=== PATIENT | male | born 1975 | race Caucasian/White ===

== ENCOUNTER 2020-03-04 08:48 | Outpatient (CLI) | payer OTHER, SELFPAY ==
[2020-03-04 09:58] LABS: Vitamin D 25 Hydroxy 55.9 ng/mL
== END 2020-03-04 08:49 | disposition home or self-care (01) ==
PROVIDERS: PCP Family Medicine; Visit Provider Nurse Practitioner Family
DX: E55.9 Vitamin D deficiency, unspecified (principal)
CPT/HCPCS: 36415; 82306

== ENCOUNTER 2020-07-25 08:55 | Outpatient (CLI) | payer OTHER, SELFPAY ==
[2020-07-25 09:35] LABS: Cholesterol 143 mg/dL (0-200); HDL Direct 23 mg/dL; Triglycerides 196 mg/dL (<150)
[2020-07-25 09:45] LABS: LDL Cholesterol Direct 103 mg/dL
== END 2020-07-25 08:56 | disposition home or self-care (01) ==
PROVIDERS: PCP Family Medicine; Visit Provider Nurse Practitioner Family
DX: E78.1 Pure hyperglyceridemia (principal); E78.2 Mixed hyperlipidemia
CPT/HCPCS: 36415; 80061

== ENCOUNTER 2020-08-29 18:04 | Emergency (ER) | payer OTHER, SELFPAY ==
--- NOTE | ~2020-08-29 | CT_ITS ---
EXAMINATION: CT abdomen pelvis wo con DATE: 08/29/2020 19:04 INDICATION: Right lower quadrant abdominal pain TECHNIQUE: Computed tomography (CT) of the abdomen and pelvis was performed without intravenous contr ast. The dose-length product (DLP) was 1169.47 mGy-cm. Automated exposure control and iterative recon struction technique were employed. COMPARISON: 06/03/2017 FINDINGS: Minimal dependent atelectasis is present in the lung bases. The heart size is normal. The l iver, spleen, pancreas, gallbladder, and adrenal glands are normal. The left kidney is unremarkable. There is a 6 mm stone at the right ureteropelvic junction which causes mild hydronephrosis. Adjacent nonobstructing stones of the right kidney lower pole measure 6 mm and 4 mm. No pathologically enlarge d abdominal or pelvic lymph nodes are identified. There is no free intraperitoneal gas or evidence of bowel obstruction. The appendix is normal. There are umbilical and bilateral inguinal hernias contai david fat. There are bilateral L5 pars defects with grade 1 anterolisthesis of L5 on S1. IMPRESSION: 1. 6 mm stone of the right ureteropelvic junction causing mild hydronephrosis. 2. Nonobstructing right nephrolithiasis. Reviewed, dictated and finalized at location A. 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
--- NOTE | ~2020-08-29 | XR_ITS ---
EXAMINATION: XR abdomen/kub 1V INDICATION: Right-sided abdominal pain TECHNIQUE: Supine views of the abdomen were obtained on 2 radiographs. COMPARISON: None FINDINGS: A 6 mm stone projects at the expected location of the right ureteropelvic junction at the l evel of the right L2 transverse process. Adjacent stones of the right kidney lower pole measure 6 mm and 4 mm. The bowel gas pattern is normal. IMPRESSION: 1. 6 mm stone projecting at the expected location of the right ureteropelvic junction. 2. Right nephrolithiasis. Reviewed, dictated and finalized at location A. ESS AREA SUPERVISOR IMPRESSION: 1. 6 mm stone projecting at the expected location of the right ureteropelvic ju nction. 2. Right nephrolithiasis.
[2020-08-29 18:23] VITALS: BP 150/95; PULSE 82; RESP 17; TEMP 36.4; O2SAT 99
--- NOTE | 2020-08-29 18:24 | ED.GENADULT ---
HPI - General Adult General Chief complaint: Abdominal Pain Stated complaint: R ABD PAIN X3D Time Seen by Provider: 08/29/20 18:20 Source: RN notes reviewed History of Present Illness HPI narrative: Patient presents to emergency department from home for right lower quadrant abdominal pain. Patient states pain began 3 days ago progressively worsened pain is described as sharp and stabbing does not radiate denies any fevers or chills chest pain shortness of breath nausea vomiting diarrhea or any other symptoms states he took a hydrocodone this morning for his pain with no relief denies any other symptoms at this time Related Data Home Medications Medication Instructions Recorded Confirmed cyclobenzaprine mg 08/29/20 fenofibrate nanocrystallized mg PO 08/29/20 08/29/20 gabapentin 08/29/20 hydrocodone-acetaminophen 08/29/20 naproxen 08/29/20 simvastatin mg 08/29/20 sumatriptan succinate mg PO 08/29/20 topiramate 08/29/20 Allergies Allergy/AdvReac Type Severity Reaction Status Date / Time penicillamine Allergy Severe Unknown Verified 08/29/20 18:19 Penicillins Allergy Severe Anaphylactic Verified 08/29/20 18:19 Shock COCONUT Allergy Mild Rash Uncoded 10/21/17 17:06 Review of Systems Review of Systems: Narrative: Gen.: Denies fevers or chills ENT: Denies congestion Respiratory: Denies shortness of breath or cough CV: Denies chest pain or palpitations GI: See HPI denies burning, urgency, frequency or hematuria Musculoskeletal: Denies back pain or muscle pain Neuro: Denies numbness, tingling, weakness or focal weakness Skin: Denies rash Except as documented, all other systems reviewed and negative [facility] Past Medical History Medical History (Updated 08/29/20 @ 19:45 by Drew Vargas DO) Hypercholesterolemia Family History Family History (Updated 04/20/16 @ 23:21 by DOCTOR UNKNOWN) Father Patient's father is in good health Mother No family history of diabetes mellitus Social History Social History Second hand tobacco smoke exposure: Yes Smoking end date: 09/23/10 Alcohol intake: current Gender identity (if verbalized by the patient): Male Exam Narrative: Exam Narrative: APPEARANCE: No acute distress, nontoxic, resting in bed HEENT: Normocephalic, atraumatic, OMM RESPIRATORY: No respiratory distress, clear to auscultation bilaterally with no rhonchi wheezing or rales CARDIOVASCULAR: RRR s murmur ABDOMINAL: Soft, nondistended, tender palpation right lower quadrant no tenderness right upper quadrant left upper quadrant left lower quadrant no rebound or guarding MUSCULOSKELETAl: Moves all extremities. No clubbing, cyanosis or edema. NEURO: Awake and alert. Following commands, speech normal, no focal deficits SKIN:: Warm, dry. Normal Color PSYCHIATRIC: Normal affect/mood Course Course Emergency Course: Discussed with Dr. Huff presentation and work-up this time feels patient may be discharged to follow-up as an outpatient as long as pain is controlled Long discussion with the patient and family regarding his kidney stone we discussed his current pain levels and his current hydrocodone use at home. Discussed options of admission with stent placement versus going home and attempting to pass the stone on his own this time the patient would prefer to try to go home and pass the stone on his own discussed need for follow-up with urology and need to refrain from ibuprofen use patient states he has enough hydrocodone's at home for use for his pain control Vital Signs Vital signs: Vital Signs Temperature 97.5 F L 08/29/20 18:23 Pulse Rate 82 08/29/20 18:23 Respiratory Rate 17 08/29/20 18:23 Blood Pressure 150/95 H 08/29/20 18:23 Pulse Oximetry 99 08/29/20 18:23 Temperature 97.5 F L 08/29/20 18:23 Pulse Rate 82 08/29/20 18:23 Respiratory Rate 17 08/29/20 18:23 Blood Pressure 150/95 H 08/29/20 18:23
[2020-08-29 18:40] LABS: Basophils Absolute Auto 0.1 K/mm3 (0.0-0.1); Basophils Percent Auto 1.1 % (0.2-1.2); Eosinophils Absolute Auto 0.4 K/mm3 (0-0.3); Eosinophils Percent Auto 4.7 % (0-4.4); Hematocrit 41.7 % (42.0-52.0); Hemoglobin 14.5 g/dL (14.0-18.0); Immature Granulocyte Absolute 0.03 K/mm3 (0.00-0.031); Immature Granulocyte Percent A 0.4 % (0-0.5); Lymphocytes Absolute Auto 2.76 K/mm3 (0.9-3.2); Lymphocytes Percent Auto 33.1 % (18.3-44.2); Mean Corpuscular HGB Conc 34.8 g/dl (32-36); Mean Corpuscular Volume 86.3 fl (80-100); Mean Platelet Volume 10.1 fl (7.4-10.4); Monocytes Absolute Auto 0.4 K/mm3 (0.1-0.6); Monocytes Percent Auto 5.1 % (2.6-8.5); Neutrophils Absolute Auto 4.7 K/mm3 (1.3-6.7); Neutrophils Percent Auto 55.6 % (45.5-73.1); Platelet Count Result 277 k/mm3 (150-375); Red Blood Count 4.83 M/mm3 (4.6-6.20); Red Cell Distribution Width 12.7 % (11.5-14.5); White Blood Count 8.4 K/mm3 (4.5-10.0)
[2020-08-29 18:46] LABS: Add Urine Microscopic? YES; Appearance Urine Cloudy (Clear); Bilirubin Urine Negative (Negative); Blood Urine 3+ (Negative); Color Urine Yellow (Yellow); Glucose Urine UA Negative (Negative); Ketones Urine Negative (Negative); Leukocyte Esterase Ur Negative LEU/UL (Negative); Mucus Urine Heavy /lpf; Nitrate Urine Negative (Negative); Protein Urine 2+ mg/dL (Negative); RBC Urine >75 /hpf (0-2); Specific Grav Ur 1.021 (1.001-1.035); Squamous Epithelial Cell Urine Rare /hpf (Few)
[2020-08-29 18:51] LABS: Alanine Aminotransferase 31 U/L (4-50); Albumin Level 4.5 g/dL (3.5-5.1); Alkaline Phosphatase 38 U/L (38-126); Anion Gap 9 mmol/L (8-16); Aspartate Amino Transferase 31 U/L (17-59); Bilirubin,Total 0.5 mg/dL (0.2-1.3); Blood Urea Nitrogen 23 mg/dL (9-20); Carbon Dioxide 21 mmol/L (22-30); Chloride 110 mmol/L (98-107); Estimated CRCL calculation 54 ml/min; Estimated Glomerular Filt Rate 41; Glucose 134 mg/dL (75-110); Lipase 186 U/L (23-300); Potassium 3.4 mmol/L (3.4-5.0); Sodium 140 mmol/L (137-145)
[2020-08-29] MEDS: MORPHINE SULFATE (*CRX) 4 MG/ML INJ IV PUSH (19:00)
[2020-08-29] MEDS: SODIUM CHLORIDE 0.9% IV 1,000 ML 999 ML IV CONT (19:00)
[2020-08-29] MEDS: TAMSULOSIN HCL 0.4 MG CAPSULE PO (19:25)
[2020-08-29] MEDS: MORPHINE SULFATE (*CRX) 2 MG/ML INJ IV PUSH (20:16)
== END 2020-08-29 20:18 | disposition home or self-care (01) ==
PROVIDERS: Emergency Medicine; Emergency Provider Emergency Medicine; PCP Family Medicine
DX: N13.2 Hydronephrosis with renal and ureteral calculous obstruction (principal); N28.9 Disorder of kidney and ureter, unspecified; E78.00 Pure hypercholesterolemia, unspecified
CPT/HCPCS: 36415; 74018; 74176; 80053; 81001; 83690; 85025; 87086; 96374; 96376; 99284; A9270; J2270; J7030

== ENCOUNTER 2020-09-09 09:01 | Inpatient (IN) | payer OTHER, SELFPAY ==
[2020-09-09] VITALS (31 sets, daily range): BP systolic 107–146; BP diastolic 62–100; PULSE 63–93; RESP 14–26; TEMP 36.4–38; O2SAT 94–100
--- NOTE | ~2020-09-09 | CT_ITS ---
EXAMINATION: CT abdomen pelvis wo con DATE: 09/09/2020 11:27 INDICATION: Urinary tract infection, cold chills. Diarrhea for 2 days. Urinary urgency. History of ki dney stones. TECHNIQUE: Computed tomography (CT) of the abdomen and pelvis was performed without intravenous contr ast. Automated exposure control and iterative reconstruction technique were employed. Exam dose: 431 .31 mGy-cm total exam DLP. COMPARISON: 08/29/2020 CT abdomen pelvis noncontrast examination FINDINGS: There is atelectasis in both lower lobes, right greater than left. The liver, gallbladder, spleen, pancreas, bile ducts, pancreatic duct and adrenal glands are unremark able. Approximately 3 mm and 6 cm lower pole nonobstructing right renal calculi. There is an approximately 4 mm proximal right ureteral calculus at the L3-4 level with mild right hyd roureteronephrosis and mild probable pyelosinus extravasation. Approximately 1.6 cm probable upper pole posterior right renal cyst. No left urinary tract calculus or hydroureteronephrosis. The urinary bladder and prostate gland are u nremarkable. Normal caliber of the abdominal aorta. No intraperitoneal or retroperitoneal or pelvic mass lesion or adenopathy or ascites. No evidence of appendicitis. No bowel obstruction, bowel wall thickening, pneumatosis or intraperiton eal free air. Small fat-containing hernias, larger on the right. Mild retrolisthesis at L4-5. Bilateral L5 pars interarticularis defects, with associated grade 1 anterolisthesis at L5-S1. Moderat masoud severe degenerative disc disease at L5-S1. IMPRESSION: 4 mm proximal right ureteral calculus at L3-4 level with mild right hydroureteronephrosi s and pyelosinus extravasation 3 mm and 6 mm lower pole nonobstructing right renal calculi Probable 1.6 cm right renal cyst Bilateral L5 pars interarticularis defects with associated grade 1 anterolisthesis at L5-S1, as well as moderately severe degenerative disc disease Reviewed, dictated and finalized at [facility]. Reviewed, dictated and finalized at location [facility]. 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
--- NOTE | ~2020-09-09 | XR_ITS ---
EXAMINATION: XR retrograde pyelo w/stent RT DATE: 09/09/2020 13:55 INDICATION: Right internal ureteral stent placement TECHNIQUE: Fluoroscopic images from a right internal ureteral stent placement are submitted for tiff payan 31 seconds of fluoroscopy time. 4 Fluoroscopic images. FINDINGS: There is a right double-J internal ureteral stent projecting in expected position, with proximal [place] loop at the level of the renal pelvis and distal loop in the pelvis within the bladder lumen. IMPRESSION: 1. Right internal ureteral stent placement. Please refer to real-time procedural findings for anna mccarty. Reviewed, dictated and finalized at location A. 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 Right internal ureteral stent placement. Please refer to real-time procedu ral findings for details.
--- NOTE | ~2020-09-09 | XR_ITS ---
EXAMINATION: XR abdomen/kub 1V EXAM DATE: 09/12/2020 13:37 INDICATION: surgical planning . TECHNIQUE: Frontal projection of the upper abdomen, frontal projection lower abdomen/pelvis for inter pretation. Comparison is made to prior examination from 08/29/2020. FINDINGS: There is a right-sided double-J ureteral stent overlying expected position. Can't identify previously seen right calyceal, UPJ stones. Nonobstructive bowel gas pattern. No organomegaly. IMPRESSION: 1. Right double-J ureteral stent in position. Reviewed, dictated and finalized at location B. NE RETAILER
--- NOTE | ~2020-09-09 | XR_ITS ---
XR chest 1V portable DATE: 09/09/2020 10:01 INDICATION: Fever. Weakness. TECHNIQUE: Portable AP chest on 09/09/2020 at 1003 hours COMPARISON: None FINDINGS: Heart size is within normal range. There is mild discoid atelectasis, discoid scarring and/or mild infiltrate in the right lower lung zo ne. No pulmonary consolidation, pleural effusion or pneumothorax is detected. No hilar or mediastinal enlargement. IMPRESSION: Mild discoid atelectasis, discoid scarring and/or mild infiltrate in the right lower lung Reviewed, dictated and finalized at location B. 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
--- NOTE | 2020-09-09 09:14 | ED.GENADULT ---
HPI - General Adult General Chief complaint: Unspecified Stated complaint: hot/cold flashes, weak Time Seen by Provider: 09/09/20 09:14 Source: patient and family Mode of arrival: ambulatory Limitations: no limitations History of Present Illness HPI narrative: Patient is a 45-year-old male with a history of nephrolithiasis, recent ureteral stenting at [facility] on 12/30, stent removal 09/05, who presents for evaluation of subjective fever, chills, general malaise and weakness. Patient states he has malaise, myalgias and feels generally unwell. He denies chest pain, cough or shortness of breath. He denies headache or vision changes. He denies any loss of sense of taste or smell. He does report mild rhinorrhea. Patient states he feels diffusely weak and has extreme lack of energy. He has states he has been sweating. He denies any new rashes. No sick contacts at home. He denies dysuria or hematuria. Related Data Home Medications Medication Instructions Recorded Confirmed cyclobenzaprine mg 08/29/20 fenofibrate nanocrystallized mg PO 08/29/20 08/29/20 gabapentin 08/29/20 hydrocodone-acetaminophen 08/29/20 naproxen 08/29/20 simvastatin mg 08/29/20 sumatriptan succinate mg PO 08/29/20 topiramate 08/29/20 Allergies Allergy/AdvReac Type Severity Reaction Status Date / Time penicillamine Allergy Severe Unknown Verified 09/09/20 09:22 Penicillins Allergy Severe Anaphylactic Verified 09/09/20 09:22 Shock COCONUT Allergy Mild Rash Uncoded 09/09/20 09:22 Review of Systems Review of Systems: Narrative: CONSTITUTIONAL: Reports fever, chills, malaise EYES: Denies visual changes, redness, or discharge. ENT: Mild rhinorrhea without congestion or sore throat CARDIOVASCULAR: Denies chest pain, palpitations, or edema. RESPIRATORY: Denies cough or dyspnea. GASTROINTESTINAL: Denies abdominal pain, nausea, vomiting, or diarrhea. GENITOURINARY: Denies dysuria or hematuria. SKIN: Denies rash or itching. MUSCULOSKELETAL: Denies back pain, reports diffuse joint pain and myalgias NEUROLOGIC: Denies headache, numbness, reports feeling diffusely weak PMFSH Past Medical History Medical History (Updated 09/09/20 @ 12:24 by Gemma Landis MD) Hypercholesterolemia Lumbar strain Migraine Nephrolithiasis Tear of meniscus of left knee Surgical History Surgical History (Updated 09/09/20 @ 09:42 by Gemma Landis MD) S/P ureteral stent placement Family History Family History (Updated 04/20/16 @ 23:21 by DOCTOR UNKNOWN) Father Patient's father is in good health Mother No family history of diabetes mellitus Social History Social History Second hand tobacco smoke exposure: Yes Smoking end date: 09/23/10 Alcohol intake: current Gender identity (if verbalized by the patient): Male Exam Narrative: Exam Narrative: GENERAL: Awake, alert, conversant, mildly diaphoretic HEAD: Normocephalic, atraumatic. EYES: PERRLA and EOMI. ENT: Nares clear, no rhinorrhea or epistaxis. Mucous membranes moist. NECK: Supple. CHEST: No respiratory distress, breathing even and non labored HEART: Regular rate, sinus rhythm ABDOMEN:Non distended, non tender EXTREMITIES: Normal range of motion. No edema. SKIN: Pale, warm, dry, no rash. NEURO:No focal deficits. Alert and oriented x3 Course Vital Signs Vital signs: Vital Signs Temperature 36.4 C 09/09/20 09:05 Pulse Rate 92 09/09/20 09:05 Respiratory Rate 18 09/09/20 09:05 Blood Pressure 139/100 H 09/09/20 09:05 Pulse Oximetry 99 09/09/20 09:05 Temperature 36.4 C 09/09/20 09:05 Pulse Rate 72 09/09/20 11:49 Respiratory Rate 20 09/09/20 11:49 Blood Pressure 115/80 09/09/20 11:49 Pulse Oximetry 99 09/09/20 11:49 Medical Decision Making MDM Narrative Medical decision making narrative: Patient presented for evaluation of generalized malaise, arthralgias, no speci
--- NOTE | 2020-09-09 09:28 | ECG_ITS ---
Measurements Intervals [place] Rate: 82 P: 17 AR: 235 QRS: 20 QRSD: 166 T: 15 QT: 397 QTc: 466 Interpretive Statements SINUS RHYTHM WITH FIRST DEGREE AV BLOCK RIGHT BUNDLE BRANCH BLOCK ABNORMAL ECG Electronically Signed On 09-09-2020 9:41:28 POWERHOUSE HELPER by Jesus Hester D.O.
[2020-09-09 09:40] LABS: Glucose Point of Care 123 (65-105)
[2020-09-09] MEDS: ONDANSETRON INJ 4 MG/2 ML VIAL IV PUSH (09:56)
[2020-09-09] MEDS: SODIUM CHLORIDE 0.9% IV 1,000 ML 999 ML IV CONT ×2 (09:56→11:18)
[2020-09-09 10:04] LABS: Basophils Absolute Auto 0.1 K/mm3 (0.0-0.1); Basophils Percent Auto 0.6 % (0.2-1.2); Eosinophils Absolute Auto 0.5 K/mm3 (0-0.3); Hematocrit 42.1 % (42.0-52.0); Hemoglobin 14.1 g/dL (14.0-18.0); Immature Granulocyte Absolute 0.09 K/mm3 (0.00-0.031); Immature Granulocyte Percent A 0.6 % (0-0.5); Lymphocytes Absolute Auto 1.21 K/mm3 (0.9-3.2); Mean Corpuscular HGB Conc 33.5 g/dl (32-36); Mean Corpuscular Hemoglobin 29.4 pg (26-34); Mean Corpuscular Volume 87.9 fl (80-100); Mean Platelet Volume 10.4 fl (7.4-10.4); Monocytes Percent Auto 6.8 % (2.6-8.5); Neutrophils Absolute Auto 12.3 K/mm3 (1.3-6.7); Platelet Count Result 287 k/mm3 (150-375); Red Blood Count 4.79 M/mm3 (4.6-6.20); Red Cell Distribution Width 12.6 % (11.5-14.5); White Blood Count 15.1 K/mm3 (4.5-10.0)
[2020-09-09 10:11] LABS: Add Urine Microscopic? YES; Appearance Urine Cloudy (Clear); Bacteria Urine Trace /hpf; Bilirubin Urine Negative (Negative); Blood Urine 2+ (Negative); Color Urine Yellow (Yellow); Glucose Urine UA Negative (Negative); Ketones Urine Negative (Negative); Leukocyte Esterase Ur 3+ LEU/UL (Negative); Mucus Urine Rare /lpf; Nitrate Urine Negative (Negative); Protein Urine 2+ mg/dL (Negative); RBC Urine >75 /hpf (0-2); Specific Grav Ur 1.021 (1.001-1.035); Squamous Epithelial Cell Urine Rare /hpf (Few); WBC Urine >75 /hpf
[2020-09-09 10:13] LABS: INR 1.1
[2020-09-09 10:14] LABS: Partial Thromboplastin Time 40.1 SECONDS (22.3-36.8)
[2020-09-09 10:18] LABS: Lactic Acid Reflex 0.9 mmol/L (0.7-2.1)
[2020-09-09 10:27] LABS: Alanine Aminotransferase 33 U/L (4-50); Albumin Level 4.2 g/dL (3.5-5.1); Alkaline Phosphatase 47 U/L (38-126); Anion Gap 11 mmol/L (8-16); Aspartate Amino Transferase 36 U/L (17-59); Bilirubin,Total 1.1 mg/dL (0.2-1.3); Blood Urea Nitrogen 20 mg/dL (9-20); Calcium 9.2 mg/dL (8.4-10.2); Carbon Dioxide 22 mmol/L (22-30); Chloride 104 mmol/L (98-107); Estimated CRCL calculation 71 ml/min; Estimated Glomerular Filt Rate 51; Glucose 121 mg/dL (75-110); Potassium 3.6 mmol/L (3.4-5.0); Sodium 137 mmol/L (137-145)
[2020-09-09 10:30] LABS: Troponin I < 0.012 ng/mL (0.000-0.034)
[2020-09-09 10:48] LABS: CRP 20.4 mg/dL (<1.0)
[2020-09-09] MEDS: CIPROFLOXACIN 400 MG/D5W 200ML 200 ML 200 MG IVPB (11:17)
--- NOTE | 2020-09-09 11:32 | PC.NURSE ---
pt back from radiology at this time.
--- NOTE | 2020-09-09 12:13 | WPDURCON ---
Assessment and Plan Assessment and plan (1) Ureteral calculus, right: Code(s): N20.1 - Calculus of ureter Status: Acute Assessment and Plan: He will undergo cystoscopy with right stent placement today. He has an elevated white count and elevated creatinine. He understands will not be removing his stone. He will be admitted to the medicine service afterwards for IV antibiotics and monitoring. He will need definitive stone management at some point once the acute situation resolved (2) Calculus, kidney: Code(s): N20.0 - Calculus of kidney Status: Acute Assessment and Plan: Two nonobstructing kidney stones in the right noted on CT scan (3) Abnormal urinalysis: Code(s): R82.90 - Unspecified abnormal findings in urine Status: Acute Assessment and Plan: Suspicious for infection. Urine culture pending Urology Consult Note HPI Date Seen: 09/09/20 Primary Care Provider: Joe Ireland MD Consult Narrative Narrative: Rommel Morales is a 45 year old male who was seen in the emergency room here on August 29 with a right proximal ureteral stone. He was discharged with pain medicine. He has stone surgery down at [facility]. They did ureteroscopy and evidently stone extraction. He was sent home with a stent. He was told to take his stent out himself on Saturday which she did. He did well for a couple days. However on Saturday states he started feeling lot of malaise and body aches. He endorsed a fever but had no thermometer at home. He stated he had some blood in his urine and some mild flank pain. He presented to the emergency room here today. His urine is grossly abnormal. He has a 4 mm mid to proximal ureteral stone with some probable extravasation. He has an abnormal chest x-ray and there is at least a suspicion for COVID-19. In light of his fever, white count, ureteral stone he will undergo right ureteral stent today. Review of Systems Review of Systems: Narrative: He denies any cough for upper respiratory symptoms. All systems reviewed & are unremarkable except as noted in HPI and below PMFSH Past Medical History Medical History (Updated 09/09/20 @ 12:16 by Keaton Mayo MD) Hypercholesterolemia Lumbar strain Migraine Nephrolithiasis Tear of meniscus of left knee Surgical History Surgical History (Updated 09/09/20 @ 09:42 by Gemma Landis MD) S/P ureteral stent placement Family History Family History (Updated 04/20/16 @ 23:21 by DOCTOR UNKNOWN) Father Patient's father is in good health Mother No family history of diabetes mellitus Social History Social History Second hand tobacco smoke exposure: Yes Smoking end date: 09/23/10 Alcohol intake: current Gender identity (if verbalized by the patient): Male Meds Home Medications and Allergies Home Medications Medication Instructions Recorded Confirmed Type cyclobenzaprine mg 08/29/20 History fenofibrate nanocrystallized mg PO 08/29/20 08/29/20 History gabapentin 08/29/20 History hydrocodone-acetaminophen 08/29/20 History naproxen 08/29/20 History ondansetron 4 mg PO Q6H PRN #10 tablet 08/29/20 Rx simvastatin mg 08/29/20 History sumatriptan succinate mg PO 08/29/20 History tamsulosin [Flomax] 0.4 mg PO DAILY #5 cap 08/29/20 Rx topiramate 08/29/20 History Allergies Allergy/AdvReac Type Severity Reaction Status Date / Time penicillamine Allergy Severe Unknown Verified 09/09/20 09:22 Penicillins Allergy Severe Anaphylactic Verified 09/09/20 09:22 Shock COCONUT Allergy Mild Rash Uncoded 09/09/20 09:22 Vital Signs Vital Signs - 24 hr 09/09/20 09:05 09/09/20 09:41 09/09/20 09:45 Temperature 97.6 F Pulse Rate 89 82 85 Respiratory Rate 18 20 16 Blood Pressure 139/100 H Pulse Oximetry 99 100 100 09/09/20 09:56 09/09/20 10:15 09/09/20 10:30 Temperature Pulse Rate 73 80
--- NOTE | 2020-09-09 13:22 | WPDANESEPPF ---
Anes - Initial Pre Proc Eval Procedure: Operation Date: 09/09/20 13:45 Proposed Procedures p CYSTOSCOPY,RIGHT STENT PLACEMENT - Tom Chaudhry MD Date/Time: 09/09/20 13:22 Surgeon: Tom Chaudhry MD Pre Op Diagnosis: hot/cold flashes, weak Patient Data Age: 45 Gender: M Height: 1.96 m Weight: 114 kg Last Vital Signs Temp 36.4 C 09/09/20 09:05 Pulse 76 09/09/20 13:01 Resp 24 H 09/09/20 13:01 BP 117/78 09/09/20 13:01 Pulse Ox 100 09/09/20 13:01 Allergies Allergy/AdvReac Type Severity Reaction Status Date / Time penicillamine Allergy Severe Unknown Verified 09/09/20 09:22 Penicillins Allergy Severe Anaphylactic Verified 09/09/20 09:22 Shock COCONUT Allergy Mild Rash Uncoded 09/09/20 09:22 Home Medications Medication Instructions Recorded Confirmed Type cyclobenzaprine mg 08/29/20 History fenofibrate nanocrystallized mg PO 08/29/20 08/29/20 History gabapentin 08/29/20 History hydrocodone-acetaminophen 08/29/20 History naproxen 08/29/20 History ondansetron 4 mg PO Q6H PRN #10 tablet 08/29/20 Rx simvastatin mg 08/29/20 History sumatriptan succinate mg PO 08/29/20 History tamsulosin [Flomax] 0.4 mg PO DAILY #5 cap 08/29/20 Rx topiramate 08/29/20 History Laboratory Tests 09/09/20 09/09/20 09/09/20 09:37 09:41 09:44 WBC 15.1 K/mm3 H K/mm3 (4.5-10.0) RBC 4.79 M/mm3 M/mm3 (4.6-6.20) Hgb 14.1 g/dL g/dL (14.0-18.0) Hct 42.1 % % (42.0-52.0) MCV 87.9 fl fl (80-100) MCH 29.4 pg pg (26-34) MCHC 33.5 g/dl g/dl (32-36) RDW 12.6 % % (11.5-14.5) Plt Count 287 k/mm3 k/mm3 (150-375) MPV 10.4 fl fl (7.4-10.4) Immature Gran % (Auto) 0.6 % H % (0-0.5) Neut % (Auto) 81.0 % H % (45.5-73.1) Lymph % (Auto) 8.0 % L % (18.3-44.2) [place] % (Auto) 6.8 % % (2.6-8.5) Eos % (Auto) 3.0 % % (0-4.4) Baso % (Auto) 0.6 % % (0.2-1.2) Lymph # (Auto) 1.21 K/mm3 K/mm3 (0.9-3.2) [place] # (Auto) 1.0 K/mm3 H K/mm3 (0.1-0.6) Eos # (Auto) 0.5 K/mm3 H K/mm3 (0-0.3) Baso # (Auto) 0.1 K/mm3 K/mm3 (0.0-0.1) Abs Immat Gran (auto) 0.09 K/mm3 H K/mm3 (0.00-0.031) Absolute Neuts (auto) 12.3 K/mm3 H K/mm3 (1.3-6.7) Absolute Nucleated RBC 0.0 K/mm3 K/mm3 (0.0-0.012) Nucleated RBC % 0.0 % % (0.0-0.2) PT INR APTT Sodium Potassium Chloride Carbon Dioxide Anion Gap BUN Creatinine Estim Creat Clear Calc Estimated GFR Glucose POC Capillary Glucose 123 mg/dl H mg/dl (65-105) Lactic Acid Calcium Total Bilirubin AST ALT Alkaline Phosphatase Troponin I C-Reactive Protein Total Protein Albumin Urine Color Urine Appearance Urine pH Ur Specific [place] Urine Protein Urine Glucose (UA) Urine Ketones Ur Blood (Man) Urine Nitrate Urine Bilirubin Urine Urobilinogen Leukocyte Esterase Rfl Urine RBC Urine WBC Ur Squamous Epith Cells Urine Bacteria Hyaline Casts Urine Mucus SARS-CoV-2 RNA (RT-PCR) Pending 09/09/20 09/09/20 09/09/20 09:44 09:44 09:44 WBC RBC Hgb Hct MCV MCH MCHC RDW Plt Count MPV Immature Gran % (Auto) Neut % (Auto) Lymph % (Auto) [place] % (Auto)
[2020-09-09] MEDS: LACTATED RINGERS 1,000 ML 30 ML IV CONT (13:30)
--- NOTE | 2020-09-09 13:31 | WPDHPUPDATE1 ---
History and Physical Update Update Date/Time: 09/09/20 13:31 History and Physical has been reviewed, including an updated exam of the patient. There are NO changes in the patient's condition. Risks, benefits, and alternatives have been discussed and questions answered. Patient agrees to proceed with procedure.
[2020-09-09] MEDS: LIDOCAINE HCL 2% GEL UROJET 10 ML PKG MUCOUS MEM (13:47)
--- NOTE | 2020-09-09 13:53 | PM.PROC ---
Procedure Note - Detailed Date of procedure: 09/09/20 Pre-op diagnosis: hot/cold flashes, weak Post-op diagnosis: same Procedure performed: 1. Cystoscopy, right RPG. 2 Right ureteral stent placement Description of procedure: The patient was brought to the operative suite where he was prepped and draped in a routine sterile fashion while in the dorsal lithotomy position. A 19 F rigid cystoscope was placed in her bladder and the bladder was circumferentially inspected. There were no urethral strictures. The prostatic urethral estimated length was 1.0cm. There was no obstruction of the prostatic urethra. The bladder mucosa was without hyperemia. There was no intravesical foreign body or neoplasm. There was a single orthotopic ureteral orifice bilaterally. I performed a right retrograde pyelogram to outline the collecting system A .035 glidewire into the right renal pelvis under fluoroscopy. A 4.8F variable length ureteral stent was positioned with the proximal coil in the renal pelvis and the distal coil in the bladder. Scopes and wires were removed after emptying the patient's bladder. Anesthesia: MAC Surgeon: Tom Chaudhry MD Estimated blood loss (mL): 0 Drains: Yes (4.8F ureteral stent) Packing: No Pathology: yes Complications: No immediate complications Condition: stable Disposition: PACU
--- NOTE | 2020-09-09 14:58 | PM.IMHP ---
H&P: HPI History of Present Illness Date/Time: 09/09/20 14:58 Chief Complaint: chills Narrative: Rommel Morales is a 45 year old male Who has a history of having kidney stones. The patient recently had ureteral stenting at [place] on 08/31/2020 and the patient tells me that he removed the stent on his own on 09/05/2020. The patient stated that 3 stones have been removed already. patient had subjective fever and chills generalized malaise and weakness the patient has not been exposed to any COVID-19 and he is aware of any does not have any sick contacts. He has not had any loss of taste or smell. The patient feels weak and has not of energy the patient has no CVA tenderness or hematuria. 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 3 mm and 6 mm lower pole nonobstructing right renal calculi. Probable 1.6 cm right renal cyst. 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 Severe degenerative disc disease. Urology has been consulted and the patient was taken to 0 are. The patient had a retrograde pyelogram that reads right internal ureteral stent placement. Chest x-ray was read as mild discoid atelectasis discoid scar and or mild infiltration the right lower lung. Patient initially was started on Cipro for UTI however since the chest x-ray showed some possible infiltration. Patient was also check for covid 19. Patient's white count was noted to be 15.1. Was 1.5 previous creatinine was 1.8. The patient is not aware of any chronic renal failure. Prior creatinine was 1.5. The patient is being admitted to observation status on 09/09/2020 Review of Systems Review of Systems: All systems reviewed & are unremarkable except as noted in HPI and below Constitutional: Constitutional: Reports as per HPI and Reports no additional constitutional complaints Eyes: Eyes: Reports as per HPI and Reports no additional eye complaints ENT: Reports system reviewed and no additional complaints, except as documented and Reports Normal hearing present Cardiovascular: Cardiovascular: Reports no additional cardiovascular complaints Respiratory: Respiratory: Reports no additional respiratory complaints and Reports no additional respiratory complaints Gastrointestinal: Gastrointestinal: Reports as per HPI and Reports no additional gastrointestinal complaints Musculoskeletal: Musculoskeletal: Reports no additional musculoskeletal complaints Integumentary/Breasts: Skin/Breast: Reports system reviewed and no additional complaints, except as docu and Reports as per HPI Neurologic: Reports system reviewed and no additional complaints, except as documented, Reports as per HPI and Reports Normal hearing present Psychiatric: Psychiatric: Reports no additional psychiatric complaints and Reports as per HPI Endocrine: Endocrine: Reports no additional endocrine complaints Hematologic/Lymphatic: Hematologic/Lymphatic: Reports no additional hematologic/lymphatic complaints Allergic/Immunologic: Allergic/Immunologic: Reports no additional allergic/immunologic complaints [facility] Past Medical History Medical History (Updated 09/09/20 @ 15:10 by Lorelei Toledo NP) Hypercholesterolemia Lumbar strain Migraine Nephrolithiasis Peripheral neuropathy Tear of meniscus of left knee Surgical History Surgical History (Updated 09/09/20 @ 15:10 by Lorelei Toledo NP) History of arthroplasty of left knee S/P ureteral stent placement and 09/09/2020 Family History Family History (Updated 09/09/20 @ 15:22 by Lorelei Toledo NP) Father Diabetes mellitus Mother No family history of diabetes mellitus Fibromyalgia Dementia IBS (irritable bowel syndrome) Social History Social History (Updated 09/09/20 @ 15:24 by Lorelei Toledo NP) Social History: the patient lives with his and his
--- NOTE | 2020-09-09 16:55 | PC.NURSE ---
1450 Returned from OR per [STRETCHER ]. Report received from [LIBORIO ]. This patient, Rommel Morales, was admitted to 3 [facility] Surg Room 307-01. Patient/family oriented to hospital policies and general routines including ID bracelet, bed and alarms, visiting hours, pain management, procedures, bathroom and other care routines, personal items, smoking policy, room service/diet, and visiting hours. Information on how to activate the Rapid Response Team has been discussed. Patient/Family are encouraged to report perceived risks to care and to ask questions if they do not understand what they are told or what they should do.
[2020-09-09] MEDS: SODIUM CHLORIDE 0.9% IV 1,000 ML 125 ML IV CONT (18:13)
[2020-09-09] MEDS: TOPIRAMATE 25 MG TABLET 50 MG PO (18:16)
[2020-09-09] MEDS: GABAPENTIN 300 MG CAPSULE 600 MG PO (18:18)
[2020-09-09] MEDS: CYCLOBENZAPRINE HCL 10 MG TABLET PO (18:18)
[2020-09-09 20:00] LABS: SARS-CoV-2 RNA PCR Negative
[2020-09-09] MEDS: FENOFIBRATE NANOCRYSTALLIZED 145 MG TABLET PO (20:35)
[2020-09-09] MEDS: HYDROcodone/acetaminophen (*CRX) 10-325 MG TABLET 1 TAB PO (20:35)
[2020-09-10 06:00] VITALS: BP 121/63; PULSE 83; RESP 16; TEMP 36.4; O2SAT 96
[2020-09-10 07:01] LABS: Basophils Absolute Auto 0.1 K/mm3 (0.0-0.1); Basophils Percent Auto 0.7 % (0.2-1.2); Eosinophils Absolute Auto 0.3 K/mm3 (0-0.3); Eosinophils Percent Auto 2.8 % (0-4.4); Hematocrit 35.6 % (42.0-52.0); Hemoglobin 12.3 g/dL (14.0-18.0); Immature Granulocyte Absolute 0.06 K/mm3 (0.00-0.031); Immature Granulocyte Percent A 0.5 % (0-0.5); Lymphocytes Percent Auto 9.6 % (18.3-44.2); Mean Corpuscular HGB Conc 34.6 g/dl (32-36); Mean Corpuscular Hemoglobin 29.6 pg (26-34); Mean Corpuscular Volume 85.8 fl (80-100); Mean Platelet Volume 10.3 fl (7.4-10.4); Monocytes Percent Auto 8.5 % (2.6-8.5); Neutrophils Absolute Auto 8.9 K/mm3 (1.3-6.7); Neutrophils Percent Auto 77.9 % (45.5-73.1); Platelet Count Result 238 k/mm3 (150-375); Red Blood Count 4.15 M/mm3 (4.6-6.20); Red Cell Distribution Width 12.9 % (11.5-14.5); White Blood Count 11.5 K/mm3 (4.5-10.0)
[2020-09-10 07:12] LABS: Alanine Aminotransferase 53 U/L (4-50); Albumin Level 3.8 g/dL (3.5-5.1); Alkaline Phosphatase 62 U/L (38-126); Anion Gap 11 mmol/L (8-16); Aspartate Amino Transferase 50 U/L (17-59); Bilirubin,Total 0.9 mg/dL (0.2-1.3); Blood Urea Nitrogen 17 mg/dL (9-20); Calcium 8.9 mg/dL (8.4-10.2); Carbon Dioxide 19 mmol/L (22-30); Chloride 108 mmol/L (98-107); Estimated CRCL calculation 71 ml/min; Estimated Glomerular Filt Rate 51; Glucose 91 mg/dL (75-110); Potassium 3.4 mmol/L (3.4-5.0); Sodium 138 mmol/L (137-145)
[2020-09-10] MEDS: CHOLECALCIFEROL 1,000 UNITS TABLET 2000 UNITS PO (08:01)
[2020-09-10] MEDS: NAPROXEN 500 MG TABLET PO (08:04)
[2020-09-10] MEDS: GABAPENTIN 300 MG CAPSULE PO (08:04)
[2020-09-10] MEDS: TAMSULOSIN HCL 0.4 MG CAPSULE PO (08:04)
[2020-09-10] MEDS: TOPIRAMATE 25 MG TABLET 50 MG PO ×3 (08:05→17:09)
[2020-09-10] MEDS: HYDROcodone/acetaminophen (*CRX) 10-325 MG TABLET 1 TAB PO ×2 (08:07→20:23)
[2020-09-10 14:00] VITALS: BP 134/71; PULSE 85; RESP 16; TEMP 36.9; O2SAT 100
--- NOTE | 2020-09-10 15:38 | WPDUROPN2 ---
Progress Note: A&P Assessment and Plan (1) Acute UTI: Code(s): N39.0 - Urinary tract infection, site not specified Status: Acute (2) Ureteral calculus, right: Code(s): N20.1 - Calculus of ureter Status: Acute Assessment and Plan: POD#1 s/p R stent placement for obstructing R ureteral stone. Flank pain has improved. Is on levaquin. Wbc ct improved and afebrile today. Continue flomax and strain urine. Will await blood and urine cx results while currently on levaquin. ARF- unclear what baseline Cr is. Spoke with Dr. Liang- he restarted IVF and is stopping his naproxen. Will recheck Cr in AM. Will need definitive stone surgery with Isidoro as an outpatient. Subjective Subjective Date/Time Seen: 09/10/20 15:38 POD#1 s/p R stent placement for obstructing ureteral stone and +UA. Had low grade fever yesterday evening. Afebrile today. Overall is feeling better. Having some stent irritation Review of Systems Constitutional: Constitutional: Reports as per HPI Gastrointestinal: Gastrointestinal: Denies abdominal pain Genitourinary: Genitourinary: Reports dysuria (due to stent) and Reports urinary frequency (due to stent) Exam Const: General: cooperative, healthy appearing, comfortable and no acute distress HENMT: Head: normal to inspection Ears: hearing grossly normal bilaterally General nose exam: Normal external nose present Resp: Effort & Inspection: normal respiratory effort GI: Inspection: normal to inspection GI Palp: No abdominal tenderness Objective Data Vital Signs Vital Signs: Vital Signs - 24 hr 09/09/20 17:52 09/09/20 18:00 09/09/20 21:30 Temperature 38.0 C H 38.0 C H 36.4 C L Pulse Rate 87 Respiratory Rate 18 Blood Pressure 109/62 Pulse Oximetry 97 09/09/20 23:39 09/10/20 06:00 09/10/20 14:00 Temperature 37.2 C 36.4 C L 36.9 C Pulse Rate 63 83 85 Respiratory Rate 18 16 16 Blood Pressure 108/64 121/63 134/71 Pulse Oximetry 98 96 100 Intake/Output Intake/Output: Intake & Output 09/07/20 09/08/20 09/09/20 09/10/20 23:59 23:59 23:59 23:59 Intake Total 3050 2050 Output Total 700 Balance 3050 1350 Meds/Results Medications: Active Medications Generic Name Dose Route Start Last Admin Trade Name Freq PRN Reason Stop Dose Admin Hydrocodone Bitart/Acetaminophen 1 tab 09/09/20 17:42 09/10/20 08:07 Hydrocodone/Acetaminophen (*Crx) 10-325 Mg Tablet PO 1 tab Q4-6H PRN Administration PAIN RATED 4-6 Cyclobenzaprine HCl 10 mg 09/09/20 18:00 09/09/20 18:18 Cyclobenzaprine Hcl 10 Mg Tablet PO 10 mg QPM AMOS Administration Enoxaparin Sodium 40 mg 09/10/20 21:00 Enoxaparin 40 Mg/0.4 Ml Syringe SUB-Q HS AMOS Fenofibrate 145 mg 09/09/20 21:00 09/09/20 20:35 Fenofibrate Nanocrystallized 145 Mg Tablet PO 145 mg HS AMOS Administration Fentanyl Citrate 25 mcg 09/09/20 13:23 Fentanyl Citrate Inj (*Crx) 100 Mcg/2 Ml Vial IV PUSH Q2M PRN Pain Gabapentin 600 mg 09/09/20 18:00 09/09/20 18:18 Gabapentin 300 Mg Capsule PO 600 mg QPM AMOS Administration Gabapentin 300 mg 09/10/20 09:00 09/10/20 08:04 Gabapentin 300 Mg Capsule PO 300 mg QAM AMOS Administration Levofloxacin/Dextrose 750 mg in 150 mls @ 100 mls/hr 09/09/20 21:00 09/10/20 06:51 Levaquin 750 Mg/D5w 150 Ml IVPB Infused Q24H AMOS Infusion Sodium Chloride 1,000 mls @ 100 mls/hr 09/10/20 15:35 Normal Saline Iv IV CONT .Q10H AMOS Naproxen 500 mg 09/10/20 09:00 09/10/20 08:04 Naproxen 500 Mg Tablet PO 500 mg BID AMOS Administration Ondansetron HCl 4 mg 09/09/20 13:23 Ondansetron Inj 4 Mg/2 Ml Vial IV PUSH ONCE PRN Nausea Sumatriptan Succinate 100 mg 09/09/20 17:52 Sumatriptan Succinate 25 Mg Tablet PO PRN PRN Migraine Headache Tamsulosin HCl 0.4 mg 09/10/20 09:00 09/10/20 08:04 Tamsulosin Hcl 0.4 Mg Capsule PO 0.4 mg DAILY [facility] Admin
[2020-09-10] MEDS: POTASSIUM CHLORIDE 20 MEQ TABLET 40 MEQ PO (15:39)
[2020-09-10] MEDS: SODIUM CHLORIDE 0.9% IV 1,000 ML 100 ML IV CONT (15:40)
--- NOTE | 2020-09-10 16:05 | PM.IMPN ---
Progress Note: A&P Assessment and Plan (1) Ureteral calculus, right: Code(s): N20.1 - Calculus of ureter Status: Acute Assessment and Plan: Urology took patient to OR 09/09 for right ureteral stent in cystoscope. Continue with Flomax (2) Hypercholesterolemia: Code(s): E78.00 - Pure hypercholesterolemia, unspecified Status: Acute Assessment and Plan: holding simvastatin at this time to prevent any interaction with Levaquin. (3) Acute UTI: Code(s): N39.0 - Urinary tract infection, site not specified Status: Acute Assessment and Plan: Continue with Levaquin for now. One a repeat blood culture growing Gram-positive cocci in clusters but suspect is contaminant with all others negative (4) Peripheral neuropathy: Code(s): G62.9 - Polyneuropathy, unspecified Status: Chronic Assessment and Plan: Continue with gabapentin. (5) Migraine: Code(s): G43.909 - Migraine, unspecified, not intractable, without status migrainosus Status: Chronic Assessment and Plan: continue Triptan and topiramate (6) ANA (acute kidney injury): Code(s): N17.9 - Acute kidney failure, unspecified Status: Acute Assessment and Plan: Creatinine in September was 1.5. 08/29 his creatinine was up to 1.8. May be chronic renal failure stage 3 but will hold anti-inflammatories and continue IV hydration and monitor (7) DVT prophylaxis: Code(s): Z29.9 - Encounter for prophylactic measures, unspecified Status: Acute Assessment and Plan: Lovenox Subjective Date/time seen: 09/10/20 16:05 Interval history: Date of visit 09/10. 45-year-old with nephrolithiasis and status post right ureteral stenting in fever and chills, leukocytosis, pyuria. Blood urine cultures were obtained and patient was started on levofloxacin.. Presently feels better with decreasing fever minimal discomfort the stent. No nausea Exam Narrative: Exam Narrative: Blood pressure 134/70 pulse is 84 afebrile with T-max of 38? Pupils equal reactive light sclera anicteric Lungs clear CV regular no murmurs Abdomen soft nontender bowel sounds normal active Extremities without edema, distal pulses 2+ Neuro alert pleasant cooperative no focal deficits Objective Data Vital Signs Vital Signs: Vital Signs - 24 hr 09/09/20 17:52 09/09/20 18:00 09/09/20 21:30 Temperature 38.0 C H 38.0 C H 36.4 C L Pulse Rate 87 Respiratory Rate 18 Blood Pressure 109/62 Pulse Oximetry 97 09/09/20 23:39 09/10/20 06:00 09/10/20 14:00 Temperature 37.2 C 36.4 C L 36.9 C Pulse Rate 63 83 85 Respiratory Rate 18 16 16 Blood Pressure 108/64 121/63 134/71 Pulse Oximetry 98 96 100 Intake/Output Intake/Output: Intake & Output 09/07/20 09/08/20 09/09/20 09/10/20 23:59 23:59 23:59 23:59 Intake Total 3050 2050 Output Total 700 Balance 3050 1350 Meds/Results Medications: Active Medications Generic Name Dose Route Start Last Admin Trade Name Freq PRN Reason Stop Dose Admin Hydrocodone Bitart/Acetaminophen 1 tab 09/09/20 17:42 09/10/20 08:07 Hydrocodone/Acetaminophen (*Crx) 10-325 Mg Tablet PO 1 tab Q4-6H PRN Administration PAIN RATED 4-6 Cyclobenzaprine HCl 10 mg 09/09/20 18:00 09/09/20 18:18 Cyclobenzaprine Hcl 10 Mg Tablet PO 10 mg QPM AMOS Administration Enoxaparin Sodium 40 mg 09/10/20 21:00 Enoxaparin 40 Mg/0.4 Ml Syringe SUB-Q HS AMOS Fenofibrate 145 mg 09/09/20 21:00 09/09/20 20:35 Fenofibrate Nanocrystallized 145 Mg Tablet PO 145 mg HS AMOS Administration Fentanyl Citrate 25 mcg 09/09/20 13:23 Fentanyl Citrate Inj (*Crx) 100 Mcg/2 Ml Vial IV PUSH Q2M PRN Pain Gabapentin 600 mg 09/09/20 18:00 09/09/20 18:18 Gabapentin 300 Mg Capsule PO 600 mg QPM AMOS Administration Gabapentin 300 mg 09/10/20 09:00 09/10/20 08:04 Gabapentin 300 Mg Capsule PO 300 mg QAM AMOS
[2020-09-10] MEDS: GABAPENTIN 300 MG CAPSULE 600 MG PO (17:09)
[2020-09-10] MEDS: CYCLOBENZAPRINE HCL 10 MG TABLET PO (17:09)
[2020-09-10 17:12] VITALS: TEMP 37.3
[2020-09-10] MEDS: ACETAMINOPHEN 325 MG TABLET 650 MG PO (17:12)
[2020-09-10 18:12] VITALS: TEMP 35.8
[2020-09-10] MEDS: FENOFIBRATE NANOCRYSTALLIZED 145 MG TABLET PO (20:23)
[2020-09-10] MEDS: ENOXAPARIN 40 MG/0.4 ML SYRINGE SUB-Q (20:25)
[2020-09-10 21:23] VITALS: TEMP 35.8
[2020-09-10 22:00] VITALS: BP 125/65; PULSE 76; RESP 18; TEMP 36.4; O2SAT 98
[2020-09-11] MEDS: SODIUM CHLORIDE 0.9% IV 1,000 ML 100 ML IV CONT (03:07)
[2020-09-11 05:33] VITALS: BP 110/71; PULSE 79; RESP 20; TEMP 36.6; O2SAT 98
[2020-09-11 07:17] LABS: Basophils Absolute Auto 0.1 K/mm3 (0.0-0.1); Basophils Percent Auto 0.7 % (0.2-1.2); Eosinophils Absolute Auto 0.4 K/mm3 (0-0.3); Eosinophils Percent Auto 3.4 % (0-4.4); Hematocrit 37.2 % (42.0-52.0); Hemoglobin 12.4 g/dL (14.0-18.0); Immature Granulocyte Absolute 0.07 K/mm3 (0.00-0.031); Immature Granulocyte Percent A 0.7 % (0-0.5); Lymphocytes Absolute Auto 1.47 K/mm3 (0.9-3.2); Lymphocytes Percent Auto 13.7 % (18.3-44.2); Mean Corpuscular HGB Conc 33.3 g/dl (32-36); Mean Corpuscular Hemoglobin 28.5 pg (26-34); Mean Corpuscular Volume 85.5 fl (80-100); Mean Platelet Volume 10.3 fl (7.4-10.4); Monocytes Absolute Auto 0.7 K/mm3 (0.1-0.6); Monocytes Percent Auto 6.4 % (2.6-8.5); Neutrophils Absolute Auto 8.1 K/mm3 (1.3-6.7); Neutrophils Percent Auto 75.1 % (45.5-73.1); Platelet Count Result 293 k/mm3 (150-375); Red Blood Count 4.35 M/mm3 (4.6-6.20); Red Cell Distribution Width 12.8 % (11.5-14.5); White Blood Count 10.7 K/mm3 (4.5-10.0)
[2020-09-11 07:46] LABS: Anion Gap 11 mmol/L (8-16); Blood Urea Nitrogen 16 mg/dL (9-20); Calcium 9.2 mg/dL (8.4-10.2); Carbon Dioxide 18 mmol/L (22-30); Chloride 110 mmol/L (98-107); Estimated CRCL calculation 71 ml/min; Estimated Glomerular Filt Rate 51; Glucose 96 mg/dL (75-110); Potassium 3.6 mmol/L (3.4-5.0); Sodium 139 mmol/L (137-145)
[2020-09-11] MEDS: POTASSIUM CHLORIDE 20 MEQ TABLET 40 MEQ PO (09:28)
[2020-09-11] MEDS: HYDROcodone/acetaminophen (*CRX) 10-325 MG TABLET 1 TAB PO (09:28)
[2020-09-11] MEDS: GABAPENTIN 300 MG CAPSULE PO (09:30)
[2020-09-11] MEDS: CHOLECALCIFEROL 1,000 UNITS TABLET 2000 UNITS PO (09:30)
[2020-09-11] MEDS: TOPIRAMATE 25 MG TABLET 50 MG PO ×3 (09:30→17:11)
[2020-09-11] MEDS: TAMSULOSIN HCL 0.4 MG CAPSULE PO (09:30)
--- NOTE | 2020-09-11 11:46 | WPDUROPN2 ---
Progress Note: A&P Assessment and Plan (1) ANA (acute kidney injury): Code(s): N17.9 - Acute kidney failure, unspecified Status: Acute (2) Sepsis: Qualifiers: Sepsis acute organ dysfunction status: unspecified Sepsis type: sepsis due to unspecified organism Qualified Code(s): A41.9 - Sepsis, unspecified organism Code(s): A41.9 - Sepsis, unspecified organism Status: Acute (3) Ureteral calculus, right: Code(s): N20.1 - Calculus of ureter Status: Acute Assessment and Plan: POD#2 s/p R stent placement for obstructing R ureteral stone with coag neg staph bacteremia - pain controlled - afebrile and wbc ct improving - urine and blood cx with coag neg staph sens to levaquin. Per hospitalist, will recheck blood cultures today and will discuss length of abx therapy with ID - continue flomax and straining urine - will need definitive stone surgery with Dr. Chaudhry/Maria Esther once infection resolves Subjective Subjective Date/Time Seen: 09/11/20 11:46 Feeling better. No stone pain. Minimal stent irritation. Urine and blood cultures are growing coag neg staph Review of Systems Constitutional: Comments: feeling better Cardiovascular: Cardiovascular: Reports no additional cardiovascular complaints Respiratory: Respiratory: Reports no additional respiratory complaints Gastrointestinal: Gastrointestinal: Denies abdominal pain Genitourinary: Genitourinary: Reports urinary frequency and Reports urinary urgency Exam Const: General: cooperative, healthy appearing, comfortable and no acute distress Resp: Effort & Inspection: normal respiratory effort GI: Inspection: normal to inspection : General: Yes no CVA tenderness Objective Data Vital Signs Vital Signs: Vital Signs - 24 hr 09/10/20 14:00 09/10/20 17:12 09/10/20 18:12 Temperature 36.9 C 37.3 C 35.8 C L Pulse Rate 85 Respiratory Rate 16 Blood Pressure 134/71 Pulse Oximetry 100 09/10/20 21:23 09/10/20 22:00 09/11/20 05:33 Temperature 35.8 C L 36.4 C 36.6 C Pulse Rate 76 79 Respiratory Rate 18 20 Blood Pressure 125/65 110/71 Pulse Oximetry 98 98 Intake/Output Intake/Output: Intake & Output 09/08/20 09/09/20 09/10/20 09/11/20 23:59 23:59 23:59 23:59 Intake Total 3050 4060 2040 Output Total 2400 1950 Balance 3050 1660 90 Meds/Results Medications: Active Medications Generic Name Dose Route Start Last Admin Trade Name Freq PRN Reason Stop Dose Admin Acetaminophen 650 mg 09/10/20 17:06 09/10/20 17:12 Acetaminophen 325 Mg Tablet PO 650 mg Q6H PRN Administration Mild Pain (1-3) or Fever Hydrocodone Bitart/Acetaminophen 1 tab 09/09/20 17:42 09/11/20 09:28 Hydrocodone/Acetaminophen (*Crx) 10-325 Mg Tablet PO 1 tab Q4-6H PRN Administration PAIN RATED 4-6 Cyclobenzaprine HCl 10 mg 09/09/20 18:00 09/10/20 17:09 Cyclobenzaprine Hcl 10 Mg Tablet PO 10 mg QPM AMOS Administration Enoxaparin Sodium 40 mg 09/10/20 21:00 09/10/20 20:25 Enoxaparin 40 Mg/0.4 Ml Syringe SUB-Q 40 mg HS AMOS Administration Fenofibrate 145 mg 09/09/20 21:00 09/10/20 20:23 Fenofibrate Nanocrystallized 145 Mg Tablet PO 145 mg HS AMOS Administration Gabapentin 600 mg 09/09/20 18:00 09/10/20 17:09 Gabapentin 300 Mg Capsule PO 600 mg QPM AMOS Administration Gabapentin 300 mg 09/10/20 09:00 09/11/20 09:30 Gabapentin 300 Mg Capsule PO 300 mg QAM AMOS Administration Levofloxacin/Dextrose 750 mg in 150 mls @ 100 mls/hr 09/09/20 21:00 09/10/20 21:55 Levaquin 750 Mg/D5w 150 Ml IVPB Infused Q24H AMOS Infusion Sodium Chloride 1,000 mls @ 100 mls/hr 09/10/20 15:35 09/11/20 03:07 Normal Saline Iv IV CONT 100 mls/hr .Q10H AMOS Administration Sumatriptan Succinate 100 mg 09/09/20 17:52 Sumatriptan Succinate 25 Mg Tablet PO PRN PRN Migraine Headache Tamsulosin HCl 0.4 mg 09/10/20 09:00 09/11/20 09:
[2020-09-11 14:00] VITALS: BP 126/71; PULSE 83; RESP 16; TEMP 36.4; O2SAT 100
--- NOTE | 2020-09-11 14:47 | PM.IMPN ---
Progress Note: A&P Assessment and Plan (1) Ureteral calculus, right: Code(s): N20.1 - Calculus of ureter Status: Acute Assessment and Plan: Urology took patient to OR 09/09 for right ureteral stent in cystoscope. Continue with Flomax (2) Hypercholesterolemia: Code(s): E78.00 - Pure hypercholesterolemia, unspecified Status: Acute Assessment and Plan: resume statin (3) Acute UTI: Code(s): N39.0 - Urinary tract infection, site not specified Status: Acute Assessment and Plan: Continue with Levaquin . One blood culture initially growing Gram-positive cocci in clusters and suspect was contaminant but other BC and urine +with staph epi . Since patient recently had instrumention,assume is pathogen. will repeat BC and get ID opinion about antibiotics course and choice (4) Peripheral neuropathy: Code(s): G62.9 - Polyneuropathy, unspecified Status: Chronic Assessment and Plan: Continue with gabapentin. (5) Migraine: Code(s): G43.909 - Migraine, unspecified, not intractable, without status migrainosus Status: Chronic Assessment and Plan: continue Triptan and topiramate (6) ANA (acute kidney injury): Code(s): N17.9 - Acute kidney failure, unspecified Status: Acute Assessment and Plan: Creatinine in September was 1.5. 08/29 his creatinine was up to 1.8. May be chronic renal failure stage 3 After agressive hydration still 1.5, continue to observe (7) DVT prophylaxis: Code(s): Z29.9 - Encounter for prophylactic measures, unspecified Status: Acute Assessment and Plan: Lovenox (8) Sepsis: Qualifiers: Sepsis acute organ dysfunction status: unspecified Sepsis type: sepsis due to unspecified organism Qualified Code(s): A41.9 - Sepsis, unspecified organism Code(s): A41.9 - Sepsis, unspecified organism Status: Acute Assessment and Plan: with leukocytosis and tachypnea. urinary tract origin. continue antibiotics and repeat BC today Subjective Date/time seen: 09/11/20 14:47 Interval history: Date of visit 09/11. 45-year-old with nephrolithiasis and status post right ureteral stenting admitted with fever and chills, leukocytosis, pyuria. Blood and urine cultures growing staph epi.. Presently feels better with resolved fever and minimal discomfort from the stent. No nausea Exam Narrative: Exam Narrative: Blood pressure 110/70 pulse is 80 afebrile? Pupils equal reactive light sclera anicteric Lungs clear CV regular no murmurs Abdomen soft nontender bowel sounds normal active Extremities without edema, distal pulses 2+ Neuro alert pleasant cooperative no focal deficits Objective Data Vital Signs Vital Signs: Vital Signs - 24 hr 09/10/20 17:12 09/10/20 18:12 09/10/20 21:23 Temperature 37.3 C 35.8 C L 35.8 C L Pulse Rate Respiratory Rate Blood Pressure Pulse Oximetry 09/10/20 22:00 09/11/20 05:33 Temperature 36.4 C 36.6 C Pulse Rate 76 79 Respiratory Rate 18 20 Blood Pressure 125/65 110/71 Pulse Oximetry 98 98 Intake/Output Intake/Output: Intake & Output 09/08/20 09/09/20 09/10/20 09/11/20 23:59 23:59 23:59 23:59 Intake Total 3050 4060 2040 Output Total 2400 1950 Balance 3050 1660 90 Meds/Results Medications: Active Medications Generic Name Dose Route Start Last Admin Trade Name Freq PRN Reason Stop Dose Admin Acetaminophen 650 mg 09/10/20 17:06 09/10/20 17:12 Acetaminophen 325 Mg Tablet PO 650 mg Q6H PRN Administration Mild Pain (1-3) or Fever Hydrocodone Bitart/Acetaminophen 1 tab 09/09/20 17:42 09/11/20 09:28 Hydrocodone/Acetaminophen (*Crx) 10-325 Mg Tablet PO 1 tab Q4-6H PRN Administration PAIN RATED 4-6 Cyclobenzaprine HCl 10 mg 09/09/20 18:00 09/10/20 17:09 Cyclobenzaprine Hcl 10 Mg Tablet PO 10 mg QPM AMOS Administration Enoxaparin Sodium 40 mg 09/10/20
[2020-09-11 17:10] VITALS: TEMP 38.8
[2020-09-11] MEDS: ACETAMINOPHEN 325 MG TABLET 650 MG PO (17:10)
[2020-09-11] MEDS: CYCLOBENZAPRINE HCL 10 MG TABLET PO (17:11)
[2020-09-11] MEDS: GABAPENTIN 300 MG CAPSULE 600 MG PO (17:11)
[2020-09-11 18:10] VITALS: TEMP 35.4
[2020-09-11] MEDS: FENOFIBRATE NANOCRYSTALLIZED 145 MG TABLET PO (20:37)
[2020-09-11] MEDS: ENOXAPARIN 40 MG/0.4 ML SYRINGE SUB-Q (20:37)
[2020-09-11 22:00] VITALS: BP 133/81; PULSE 100; RESP 18; TEMP 36.2; O2SAT 100
[2020-09-12 06:00] VITALS: BP 112/67; PULSE 82; RESP 18; TEMP 36.3; O2SAT 100
[2020-09-12 06:31] LABS: Basophils Absolute Auto 0.1 K/mm3 (0.0-0.1); Basophils Percent Auto 1.2 % (0.2-1.2); Eosinophils Absolute Auto 0.3 K/mm3 (0-0.3); Eosinophils Percent Auto 2.9 % (0-4.4); Hematocrit 38.1 % (42.0-52.0); Hemoglobin 12.9 g/dL (14.0-18.0); Immature Granulocyte Absolute 0.08 K/mm3 (0.00-0.031); Immature Granulocyte Percent A 0.7 % (0-0.5); Lymphocytes Percent Auto 17.5 % (18.3-44.2); Mean Corpuscular HGB Conc 33.9 g/dl (32-36); Mean Corpuscular Volume 85.6 fl (80-100); Mean Platelet Volume 9.8 fl (7.4-10.4); Monocytes Absolute Auto 0.7 K/mm3 (0.1-0.6); Monocytes Percent Auto 6.7 % (2.6-8.5); Neutrophils Absolute Auto 7.7 K/mm3 (1.3-6.7); Platelet Count Result 311 k/mm3 (150-375); Red Blood Count 4.45 M/mm3 (4.6-6.20); Red Cell Distribution Width 12.9 % (11.5-14.5); White Blood Count 10.9 K/mm3 (4.5-10.0)
[2020-09-12 06:45] LABS: Anion Gap 9 mmol/L (8-16); Blood Urea Nitrogen 15 mg/dL (9-20); Calcium 9.3 mg/dL (8.4-10.2); Carbon Dioxide 23 mmol/L (22-30); Chloride 106 mmol/L (98-107); Estimated CRCL calculation 71 ml/min; Estimated Glomerular Filt Rate 51; Glucose 102 mg/dL (75-110); Potassium 3.5 mmol/L (3.4-5.0); Sodium 138 mmol/L (137-145)
[2020-09-12] MEDS: HYDROcodone/acetaminophen (*CRX) 10-325 MG TABLET 1 TAB PO ×3 (08:01→20:36)
[2020-09-12] MEDS: TOPIRAMATE 25 MG TABLET 50 MG PO ×3 (08:02→17:02)
[2020-09-12] MEDS: TAMSULOSIN HCL 0.4 MG CAPSULE PO (08:02)
[2020-09-12] MEDS: GABAPENTIN 300 MG CAPSULE PO (08:02)
[2020-09-12] MEDS: CHOLECALCIFEROL 1,000 UNITS TABLET 2000 UNITS PO (08:02)
--- NOTE | 2020-09-12 12:24 | WPDUROPN2 ---
Progress Note: A&P Assessment and Plan (1) Ureteral calculus, right: Code(s): N20.1 - Calculus of ureter Status: Acute Assessment and Plan: Obtain a KUB and repeat URine culture today for surgical planning. Will call patient to schedule Right ESWL or Cystoscopy with stone extraction based on KUB results. Doing very well today, ok to discharge at any time. No further urologic concerns. (2) Acute UTI: Code(s): N39.0 - Urinary tract infection, site not specified Status: Acute Subjective Subjective Date/Time Seen: 09/12/20 12:24 POD #3 Cystoscopy, Right RPG, Right stent placement. Feeling very good, no stent pain. Urine culture growing Staph, will reculture today before he leaves for surgical planning purposes. Review of Systems Cardiovascular: Cardiovascular: Reports no additional cardiovascular complaints Respiratory: Respiratory: Reports no additional respiratory complaints Gastrointestinal: Gastrointestinal: Denies abdominal pain, Denies nausea and Denies vomiting Genitourinary: Genitourinary: Denies hematuria, Denies flank pain, Denies urinary frequency and Denies urinary urgency Exam Resp: Effort & Inspection: normal respiratory effort Cardio: Rate: regular rate GI: GI Palp: Yes Soft to palpation and No Tenderness to palpation present (GI) : General: Yes no CVA tenderness Extrem: General: no edema Objective Data Vital Signs Vital Signs: Vital Signs - 24 hr 09/11/20 14:00 09/11/20 17:10 09/11/20 18:10 Temperature 97.5 F L 101.8 F H 95.7 F L Pulse Rate 83 Respiratory Rate 16 Blood Pressure 126/71 Pulse Oximetry 100 09/11/20 22:00 09/12/20 06:00 Temperature 97.1 F L 97.4 F L Pulse Rate 100 82 Respiratory Rate 18 18 Blood Pressure 133/81 112/67 Pulse Oximetry 100 100 Intake/Output Intake/Output: Intake & Output 09/09/20 09/10/20 09/11/20 09/12/20 23:59 23:59 23:59 23:59 Intake Total 3050 4060 5290 620 Output Total 2400 3550 1500 Balance 3050 1660 1740 -880 Meds/Results Medications: Active Medications Generic Name Dose Route Start Last Admin Trade Name Freq PRN Reason Stop Dose Admin Acetaminophen 650 mg 09/10/20 17:06 09/11/20 17:10 Acetaminophen 325 Mg Tablet PO 650 mg Q6H PRN Administration Mild Pain (1-3) or Fever Hydrocodone Bitart/Acetaminophen 1 tab 09/09/20 17:42 09/12/20 08:01 Hydrocodone/Acetaminophen (*Crx) 10-325 Mg Tablet PO 1 tab Q4-6H PRN Administration PAIN RATED 4-6 Cyclobenzaprine HCl 10 mg 09/09/20 18:00 09/11/20 17:11 Cyclobenzaprine Hcl 10 Mg Tablet PO 10 mg QPM AMOS Administration Enoxaparin Sodium 40 mg 09/10/20 21:00 09/11/20 20:37 Enoxaparin 40 Mg/0.4 Ml Syringe SUB-Q 40 mg HS AMOS Administration Fenofibrate 145 mg 09/09/20 21:00 09/11/20 20:37 Fenofibrate Nanocrystallized 145 Mg Tablet PO 145 mg HS AMOS Administration Gabapentin 600 mg 09/09/20 18:00 09/11/20 17:11 Gabapentin 300 Mg Capsule PO 600 mg QPM AMOS Administration Gabapentin 300 mg 09/10/20 09:00 09/12/20 08:02 Gabapentin 300 Mg Capsule PO 300 mg QAM AMOS Administration Levofloxacin/Dextrose 750 mg in 150 mls @ 100 mls/hr 09/09/20 21:00 09/11/20 22:10 Levaquin 750 Mg/D5w 150 Ml IVPB Infused Q24H AMOS Infusion Sumatriptan Succinate 100 mg 09/09/20 17:52 Sumatriptan Succinate 25 Mg Tablet PO PRN PRN Migraine Headache Tamsulosin HCl 0.4 mg 09/10/20 09:00 09/12/20 08:02 Tamsulosin Hcl 0.4 Mg Capsule PO 0.4 mg DAILY AMOS Administration Topiramate 50 mg 09/09/20 17:55 09/12/20 12:13 Topiramate 25 Mg Tablet PO 50 mg TID AMOS Administration Vitamin D 2,000 units 09/10/20 09:00 09/12/20 08:02 Cholecalciferol 1,000 Units Tablet PO 2,000 units DAILY AMOS Administration Radiology Results: ITS Impressions Chest X-Ray 09/09/20 10:04 IMPRESSION: Mild discoid atelectasis, discoid scarring and/or mild infil
--- NOTE | 2020-09-12 12:45 | WPDINFPN2 ---
Progress Note: A&P Assessment and Plan (1) Acute UTI: Code(s): N39.0 - Urinary tract infection, site not specified Status: Acute Assessment and Plan: UTI with bacteremia, stent removed and now replaced REC Vanc # 1 / 7 days, discharge planning Subjective Date/time seen: 09/12/20 12:45 Objective Data Vital Signs Vital Signs: Vital Signs - 24 hr 09/11/20 14:00 09/11/20 17:10 09/11/20 18:10 Temperature 36.4 C L 38.8 C H 35.4 C L Pulse Rate 83 Respiratory Rate 16 Blood Pressure 126/71 Pulse Oximetry 100 09/11/20 22:00 09/12/20 06:00 Temperature 36.2 C L 36.3 C L Pulse Rate 100 82 Respiratory Rate 18 18 Blood Pressure 133/81 112/67 Pulse Oximetry 100 100 Intake/Output Intake/Output: Intake & Output 09/09/20 09/10/20 09/11/20 09/12/20 23:59 23:59 23:59 23:59 Intake Total 3050 4060 5290 620 Output Total 2400 3550 1500 Balance 3050 1660 1740 -880 Meds/Results Medications: Active Medications Generic Name Dose Route Start Last Admin Trade Name Freq PRN Reason Stop Dose Admin Acetaminophen 650 mg 09/10/20 17:06 09/11/20 17:10 Acetaminophen 325 Mg Tablet PO 650 mg Q6H PRN Administration Mild Pain (1-3) or Fever Hydrocodone Bitart/Acetaminophen 1 tab 09/09/20 17:42 09/12/20 08:01 Hydrocodone/Acetaminophen (*Crx) 10-325 Mg Tablet PO 1 tab Q4-6H PRN Administration PAIN RATED 4-6 Cyclobenzaprine HCl 10 mg 09/09/20 18:00 09/11/20 17:11 Cyclobenzaprine Hcl 10 Mg Tablet PO 10 mg QPM AMOS Administration Enoxaparin Sodium 40 mg 09/10/20 21:00 09/11/20 20:37 Enoxaparin 40 Mg/0.4 Ml Syringe SUB-Q 40 mg HS AMOS Administration Fenofibrate 145 mg 09/09/20 21:00 09/11/20 20:37 Fenofibrate Nanocrystallized 145 Mg Tablet PO 145 mg HS AMOS Administration Gabapentin 600 mg 09/09/20 18:00 09/11/20 17:11 Gabapentin 300 Mg Capsule PO 600 mg QPM AMOS Administration Gabapentin 300 mg 09/10/20 09:00 09/12/20 08:02 Gabapentin 300 Mg Capsule PO 300 mg QAM AMOS Administration Lidocaine HCl 5 ml 09/12/20 12:42 Lidocaine Hcl 1% Pf Inj 5 Ml Vial INFILTRATE 09/12/20 12:43 ONCE ONE Sumatriptan Succinate 100 mg 09/09/20 17:52 Sumatriptan Succinate 25 Mg Tablet PO PRN PRN Migraine Headache Tamsulosin HCl 0.4 mg 09/10/20 09:00 09/12/20 08:02 Tamsulosin Hcl 0.4 Mg Capsule PO 0.4 mg DAILY AMOS Administration Topiramate 50 mg 09/09/20 17:55 09/12/20 12:13 Topiramate 25 Mg Tablet PO 50 mg TID AMOS Administration Vitamin D 2,000 units 09/10/20 09:00 09/12/20 08:02 Cholecalciferol 1,000 Units Tablet PO 2,000 units DAILY AMOS Administration Radiology Results: ITS Impressions Chest X-Ray 09/09/20 10:04 IMPRESSION: Mild discoid atelectasis, discoid scarring and/or mild infiltrate in the right lower lung Abdomen/Pelvis CT 09/09/20 11:28 IMPRESSION: 4 mm proximal right ureteral calculus at L3-4 level with mild right hydroureteronephrosis and pyelosinus extravasation 3 mm and 6 mm lower pole nonobstructing right renal calculi Probable 1.6 cm right renal cyst 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 Right internal ureteral stent placement. Please refer to real-time procedural findings for details. Labs Labs: Laboratory Results - last 24 hr 09/12/20 09/12/20 05:53 05:53 WBC 10.9 H RBC 4.45 L Hgb 12.9 L Hct 38.1 L MCV 85.6 MCH 29.0 MCHC 33.9 RDW 12.9 Plt Count 311 MPV 9.8 Immature Gran % (Auto) 0.7 H Neut % (Auto) 71.0 Lymph % (Auto) 17.5 L [place] % (Auto) 6.7 Eos % (Auto) 2.9 Baso % (Auto) 1.2 Lymph # (Auto) 1.90 [place] # (Auto) 0.7 H Eos # (Auto) 0.3 Baso # (Auto) 0.1 Abs Immat Gran (auto) 0.08 H Absolut
[2020-09-12 14:00] VITALS: BP 121/73; PULSE 84; RESP 18; TEMP 36.7; O2SAT 98
--- NOTE | 2020-09-12 15:15 | PM.IMPN ---
Progress Note: A&P Assessment and Plan (1) Ureteral calculus, right: Code(s): N20.1 - Calculus of ureter Status: Acute Assessment and Plan: Urology took patient to OR 09/09 for right ureteral stent and cystoscope. Continue with Flomax (2) Hypercholesterolemia: Code(s): E78.00 - Pure hypercholesterolemia, unspecified Status: Acute Assessment and Plan: resumed statin (3) Acute UTI: Code(s): N39.0 - Urinary tract infection, site not specified Status: Acute Assessment and Plan: Levaquin initially and changed to vancomycin IV for 7 day treatment today. One blood culture initially growing Gram-positive cocci in clusters and also in urine. Since patient recently had instrumention,assume is pathogen. repeat BC pending and if negative place PICC and possibly finish course of antibiotics at home (4) Peripheral neuropathy: Code(s): G62.9 - Polyneuropathy, unspecified Status: Chronic Assessment and Plan: Continue with gabapentin. (5) Migraine: Code(s): G43.909 - Migraine, unspecified, not intractable, without status migrainosus Status: Chronic Assessment and Plan: continue Triptan and topiramate (6) ANA (acute kidney injury): Code(s): N17.9 - Acute kidney failure, unspecified Status: Acute Assessment and Plan: Creatinine in September was 1.5. 08/29 his creatinine was up to 1.8. May be chronic renal failure stage 2 with GFR 71 After agressive hydration still 1.5, continue to observe (7) DVT prophylaxis: Code(s): Z29.9 - Encounter for prophylactic measures, unspecified Status: Acute Assessment and Plan: Lovenox (8) Sepsis: Qualifiers: Sepsis acute organ dysfunction status: unspecified Sepsis type: sepsis due to unspecified organism Qualified Code(s): A41.9 - Sepsis, unspecified organism Code(s): A41.9 - Sepsis, unspecified organism Status: Acute Assessment and Plan: with leukocytosis and tachypnea. urinary tract origin. continue antibiotics per ID vancomycin 7 day treatment, IV day 1 Subjective Date/time seen: 09/12/20 15:15 Interval history: Date of visit 09/12. 45-year-old with nephrolithiasis and status post right ureteral stenting admitted with fever and chills, leukocytosis, pyuria. Blood and urine cultures growing staph epi.. Presently feels better with less fever and minimal discomfort from the stent. No nausea Exam Narrative: Exam Narrative: Blood pressure 110/70 pulse is 80 afebrile? Tmax 38.8 Pupils equal reactive light sclera anicteric Lungs clear CV regular no murmurs Abdomen soft nontender bowel sounds normal active Extremities without edema, distal pulses 2+ Neuro alert pleasant cooperative no focal deficits Objective Data Vital Signs Vital Signs: Vital Signs - 24 hr 09/11/20 17:10 09/11/20 18:10 09/11/20 22:00 Temperature 38.8 C H 35.4 C L 36.2 C L Pulse Rate 100 Respiratory Rate 18 Blood Pressure 133/81 Pulse Oximetry 100 09/12/20 06:00 09/12/20 14:00 Temperature 36.3 C L 36.7 C Pulse Rate 82 84 Respiratory Rate 18 18 Blood Pressure 112/67 121/73 Pulse Oximetry 100 98 Intake/Output Intake/Output: Intake & Output 09/09/20 09/10/20 09/11/20 09/12/20 23:59 23:59 23:59 23:59 Intake Total 3050 4060 5290 620 Output Total 2400 3550 1500 Balance 3050 1660 1740 -880 Meds/Results Medications: Active Medications Generic Name Dose Route Start Last Admin Trade Name Freq PRN Reason Stop Dose Admin Acetaminophen 650 mg 09/10/20 17:06 09/11/20 17:10 Acetaminophen 325 Mg Tablet PO 650 mg Q6H PRN Administration Mild Pain (1-3) or Fever Hydrocodone Bitart/Acetaminophen 1 tab 09/09/20 17:42 09/12/20 13:53 Hydrocodone/Acetaminophen (*Crx) 10-325 Mg Tablet PO 1 tab Q4-6H PRN Administration PAIN RATED 4-6 Cyclobenzaprine HCl 10 mg 09/09/20 18:00 09/11/20 17:11 Cyclobe
--- NOTE | 2020-09-12 16:46 | PC.NURSE ---
This patient, Rommel Morales, was transferred to [facility] on 09/12/20 at 1640. Personal belongings sent with patient. Report given to Mirta CONTI. Appropriate documentation sent with patient.
--- NOTE | 2020-09-12 16:51 | PC.NURSE ---
This patient, Rommel Wilson Mcpherson, was received from [[id number]] on 09/12/20 at [facility]. Patient/family oriented to unit policies and routines
[2020-09-12] MEDS: CYCLOBENZAPRINE HCL 10 MG TABLET PO (17:02)
[2020-09-12] MEDS: GABAPENTIN 300 MG CAPSULE 600 MG PO (17:02)
--- NOTE | 2020-09-12 18:05 | CONS_ITS ---
DATE OF CONSULTATION: 09/12/2020 REASON FOR CONSULTATION: Bacteremia. HISTORY OF PRESENT ILLNESS: A 45-year-old male who was found to have nephrolithiasis and had an outpatient stent insertion at [facility] beginning 7 days before admission. Per instructions that he was given, he removed the stent on his own 4 days prior to admission. He felt well until 2 days prior to admission when he developed subjective fever, malaise, myalgias, gross hematuria, and right flank pain. Here, he was taken to the operating room on the same day. He underwent cystoscopy with a right retrograde pyelogram and ureteral stent, which remains in place now. The patient while here in the hospital has continued to have subjective fever, though no rigors. Temperature curve as noted below. He has had no other recent instrumentation. He was given no antibiotics in the week prior to admission. No corticosteroids. ALLERGIES: PENICILLIN CAUSED ANAPHYLAXIS REACTION WHEN HE WAS APPROXIMATELY 23 YEARS OLD. HABITS: No tobacco. No illicit drugs. No alcohol. PAST MEDICAL HISTORY: In addition to the above, torn meniscus in his left knee. He has a cadaver transplant into the left knee, but still has pain and he says knee replacement is anticipated in the future. He has known hyperlipidemia, migraine headaches, peripheral neuropathy. FAMILY HISTORY: Diabetes, dementia, IBS. SOCIAL HISTORY: He is , one child. Lives locally. REVIEW OF SYSTEMS: , GI, respiratory, constitutional otherwise negative. PHYSICAL EXAMINATION: GENERAL: This is a middle-aged male who appears actual age. VITAL SIGNS: His temperature has been up to 38.8 yesterday afternoon and on the was up to 38. 82, 18, 112/67, 100% on room air. SKIN: Warm and dry. No rashes. No ulcers noted. He has no cervical adenopathy. EENT: The conjunctivae are normal. Pupils are equal, round, reactive to light. Oropharynx, oral mucosa normal. NECK: Without meningismus, mass or tenderness. LUNGS: Clear to auscultation and percussion. BACK: Right CVAT is present without abnormal contour. CARDIAC: Regular rate and rhythm. No murmur, gallop, or rub. Pulses are 2+. ABDOMEN: Soft, nontender. No mass. No organomegaly. He has no Sanchez catheter. EXTREMITIES: No clubbing, cyanosis, edema. LABORATORY DATA: Blood cultures, coagulase-negative Staph species. Vancomycin SHEBA equal to 2. White count 10.9, hemoglobin 12.9, platelets are 311. His chemistry panel normal other than a creatinine of 1.5, stable in recent days. ALT is minimally high. Urinalysis on the as well as the both multiple abnormalities, which are reviewed. Repeat blood cultures are no growth after 1 day's incubation from yesterday. Urine culture from August 29 was no growth. RADIOLOGY: Abdomen and pelvic CT on September 09, right proximal ureteral calculus at L3-4 with hydroureteronephrosis. Other nonobstructing calculi, renal cyst, and lumbar abnormalities. ASSESSMENT: 1. Staphylococcal bacteremia due to complicated urinary tract infection. I doubt this is a contaminant. Other causes of his urinary tract infection are unlikely and do not think he needs further gram-negative treatment. 2. Fever and leukocytosis due to the above. 3. Mildly elevated creatinine. 4. Penicillin allergy. RECOMMENDATIONS: 1. Despite his borderline SHEBA level, I think vancomycin was appropriate for him and will initiate with a target trough 10 to 15. Stop levofloxacin. 2. Seven days of treatment anticipated and okay for discharge planning with an appropriate IV. 3. Follow up with Urology regarding his stent. Thank you very much for asking me to see him. B
[2020-09-12 20:28] VITALS: BP 118/78; PULSE 88; RESP 18; TEMP 37.4; O2SAT 100
[2020-09-12] MEDS: ENOXAPARIN 40 MG/0.4 ML SYRINGE SUB-Q (20:35)
[2020-09-12] MEDS: FENOFIBRATE NANOCRYSTALLIZED 145 MG TABLET PO (20:36)
[2020-09-13 05:18] VITALS: BP 122/84; PULSE 86; RESP 20; TEMP 35.9; O2SAT 99
[2020-09-13 05:26] LABS: Anion Gap 10 mmol/L (8-16); Blood Urea Nitrogen 19 mg/dL (9-20); Calcium 9.6 mg/dL (8.4-10.2); Carbon Dioxide 25 mmol/L (22-30); Chloride 104 mmol/L (98-107); Estimated CRCL calculation 60 ml/min; Estimated Glomerular Filt Rate 41; Glucose 106 mg/dL (75-110); Potassium 3.7 mmol/L (3.4-5.0); Sodium 139 mmol/L (137-145)
[2020-09-13] MEDS: HYDROcodone/acetaminophen (*CRX) 10-325 MG TABLET 1 TAB PO (06:35)
[2020-09-13] MEDS: CHOLECALCIFEROL 1,000 UNITS TABLET 2000 UNITS PO (08:57)
[2020-09-13] MEDS: TOPIRAMATE 25 MG TABLET 50 MG PO ×2 (08:57→13:40)
[2020-09-13] MEDS: GABAPENTIN 300 MG CAPSULE PO (08:58)
[2020-09-13] MEDS: TAMSULOSIN HCL 0.4 MG CAPSULE PO (08:58)
--- NOTE | 2020-09-13 11:25 | PM.IMPN ---
Progress Note: A&P Assessment and Plan (1) Sepsis: Qualifiers: Sepsis acute organ dysfunction status: unspecified Sepsis type: sepsis due to unspecified organism Qualified Code(s): A41.9 - Sepsis, unspecified organism Code(s): A41.9 - Sepsis, unspecified organism Status: Acute Assessment and Plan: Present on admission with fevers, leukocytosis and tachypnea. Now with septicemia from a urinary tract origin. No further fevers. WBC not checked today. Continue antibiotics per ID vancomycin 7 day treatment, IV day 2. (2) Ureteral calculus, right: Code(s): N20.1 - Calculus of ureter Status: Acute Assessment and Plan: CT scan 09/09 showing a 4 mm proximal right ureteral calculus at the L3-4 level with mild right hydroureteronephrosis and mild probable pyelosinus extravasation. Urology took patient to OR 09/09 for right ureteral stent and cystoscope. Continue with Flomax. (3) Acute UTI: Code(s): N39.0 - Urinary tract infection, site not specified Status: Acute Assessment and Plan: As above. UA consistent with UTI. Levaquin started initially. UCx growing Coag Neg Staph as are both BCx from 09/09. Since patient recently had instrumention, assume is pathogen. Abx changed to vancomycin IV for 7 day treatment starting 09/12. Repeat BCx 09/11 [address]GTD. If negative, place PICC and possibly finish course of antibiotics at home if able to afford (4) CKD (chronic kidney disease): Code(s): N18.9 - Chronic kidney disease, unspecified Status: Acute Assessment and Plan: Creatinine 1.5 - 1.8 range this year. Cr here also running 1.5-1.8. Suspect this is more chronic renal failure with GFR 40-50 and CrCl 60-70. Continue to monitor. (5) Hypercholesterolemia: Code(s): E78.00 - Pure hypercholesterolemia, unspecified Status: Acute Assessment and Plan: Stable. Continue Tricor (6) Peripheral neuropathy: Code(s): G62.9 - Polyneuropathy, unspecified Status: Chronic Assessment and Plan: Stable. Continue with gabapentin. (7) Migraine: Code(s): G43.909 - Migraine, unspecified, not intractable, without status migrainosus Status: Chronic Assessment and Plan: Stable. Continue Triptan and topiramate (8) DVT prophylaxis: Code(s): Z29.9 - Encounter for prophylactic measures, unspecified Status: Acute Assessment and Plan: Lovenox Subjective Date/time seen: 09/13/20 11:25 Interval history: Date of visit 09/13 45-year-old male with nephrolithiasis and status post right ureteral stenting admitted with fever and chills, leukocytosis, pyuria. Blood and urine cultures growing staph epi. Assuming care. Chart reviewed. No abd or back pain at rest but notices this when walking to the BR. He denies CP or SOB. No n/v. Stools are loose but once per day. Exam Narrative: Exam Narrative: AF 96.7 122/84 20 99% Gen - NARD Chest - CTA bilaterally, nml RR CV - RRR S1/S2 Abd -soft, NT/ND Back - mild left CVA tenderness Ext no pedal edema Psych - calm and appropriate Skin - warm and dry Objective Data Vital Signs Vital Signs: Vital Signs - 24 hr 09/12/20 14:00 09/12/20 20:28 09/13/20 05:18 Temperature 98.1 F 99.3 F 96.7 F L Pulse Rate 84 88 86 Respiratory Rate 18 18 20 Blood Pressure 121/73 118/78 122/84 Pulse Oximetry 98 100 99 Intake/Output Intake/Output: Intake & Output 09/10/20 09/11/20 09/12/20 09/13/20 23:59 23:59 23:59 23:59 Intake Total 4060 5290 1590 720 Output Total 2400 3550 2250 400 Balance 1660 1740 -660 320 Meds/Results Medications: Active Medications Generic Name Dose Route Start Last Admin Trade Name Freq PRN Reason Stop Dose Admin Acetaminophen 650 mg 09/10/20 17:06 09/11/20 17:10 Acetaminophen 325 Mg Tablet PO 650 mg Q6H PRN Administration Mild Pain (1-3) or Fever Hydrocodone Bitart/Acet
--- NOTE | 2020-09-13 12:04 | WPDINFPN2 ---
Progress Note: A&P Assessment and Plan (1) Acute UTI: Code(s): N39.0 - Urinary tract infection, site not specified Status: Acute Assessment and Plan: 1. UTI with bacteremia, stent removed and now replaced 2. Mild renal insufficiency, Cr stable. PharmD dosing vanc, target trough 10-15. REC Vanc # 2 / 7 days, discharge planning discussed. PICC or midline or peripheral IV, depending on actual discharge date. For now, maintain current R forearm hep lock. Subjective Date/time seen: 09/13/20 12:04 Interval history: no complaints Exam Narrative: Exam Narrative: afebrile Const: General: no acute distress Resp: Effort & Inspection: normal respiratory effort Auscultation: clear to auscultation bilaterally GI: Inspection: non-distended GI Palp: Yes Soft to palpation, No Tenderness to palpation present (GI) and No Guarding due to palpation present (GI) Objective Data Vital Signs Vital Signs: Vital Signs - 24 hr 09/12/20 14:00 09/12/20 20:28 09/13/20 05:18 Temperature 36.7 C 37.4 C 35.9 C L Pulse Rate 84 88 86 Respiratory Rate 18 18 20 Blood Pressure 121/73 118/78 122/84 Pulse Oximetry 98 100 99 Intake/Output Intake/Output: Intake & Output 09/10/20 09/11/20 09/12/20 09/13/20 23:59 23:59 23:59 23:59 Intake Total 4060 5290 1590 720 Output Total 2400 3550 2250 400 Balance 1660 1740 -660 320 Meds/Results Medications: Active Medications Generic Name Dose Route Start Last Admin Trade Name Freq PRN Reason Stop Dose Admin Acetaminophen 650 mg 09/10/20 17:06 09/11/20 17:10 Acetaminophen 325 Mg Tablet PO 650 mg Q6H PRN Administration Mild Pain (1-3) or Fever Hydrocodone Bitart/Acetaminophen 1 tab 09/09/20 17:42 09/13/20 06:35 Hydrocodone/Acetaminophen (*Crx) 10-325 Mg Tablet PO 1 tab Q4-6H PRN Administration PAIN RATED 4-6 Cyclobenzaprine HCl 10 mg 09/09/20 18:00 09/12/20 17:02 Cyclobenzaprine Hcl 10 Mg Tablet PO 10 mg QPM AMOS Administration Enoxaparin Sodium 40 mg 09/10/20 21:00 09/12/20 20:35 Enoxaparin 40 Mg/0.4 Ml Syringe SUB-Q 40 mg HS AMOS Administration Fenofibrate 145 mg 09/09/20 21:00 09/12/20 20:36 Fenofibrate Nanocrystallized 145 Mg Tablet PO 145 mg HS AMOS Administration Gabapentin 600 mg 09/09/20 18:00 09/12/20 17:02 Gabapentin 300 Mg Capsule PO 600 mg QPM AMOS Administration Gabapentin 300 mg 09/10/20 09:00 09/13/20 08:58 Gabapentin 300 Mg Capsule PO 300 mg QAM AMOS Administration Vancomycin HCl 1,750 mg in 500 mls @ 250 mls/hr 09/12/20 13:00 09/13/20 06:35 Vancomycin 1,750 Mg/D5w 500 Ml IVPB 100 mls/hr Q18H AMOS Administration Sumatriptan Succinate 100 mg 09/09/20 17:52 Sumatriptan Succinate 25 Mg Tablet PO PRN PRN Migraine Headache Tamsulosin HCl 0.4 mg 09/10/20 09:00 09/13/20 08:58 Tamsulosin Hcl 0.4 Mg Capsule PO 0.4 mg DAILY AMOS Administration Topiramate 50 mg 09/09/20 17:55 09/13/20 08:57 Topiramate 25 Mg Tablet PO 50 mg TID AMOS Administration Vitamin D 2,000 units 09/10/20 09:00 09/13/20 08:57 Cholecalciferol 1,000 Units Tablet PO 2,000 units DAILY AMOS Administration Radiology Results: ITS Impressions Chest X-Ray 09/09/20 10:04 IMPRESSION: Mild discoid atelectasis, discoid scarring and/or mild infiltrate in the right lower lung Abdomen/Pelvis CT 09/09/20 11:28 IMPRESSION: 4 mm proximal right ureteral calculus at L3-4 level with mild right hydroureteronephrosis and pyelosinus extravasation 3 mm and 6 mm lower pole nonobstructing right renal calculi Probable 1.6 cm right renal cyst 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 Right internal ureteral stent placement. Please refer to real-time procedural findings for details.
[2020-09-13 14:00] VITALS: BP 114/74; PULSE 8; RESP 18; TEMP 36.3; O2SAT 99
--- NOTE | 2020-09-13 16:04 | PM.DS ---
DS: Admitting Diagnosis Admitting Diagnosis Admitting Diagnosis: Chills. DS: Discharge Diagnosis Discharge Diagnosis (1) Sepsis: Qualifiers: Sepsis acute organ dysfunction status: unspecified Sepsis type: sepsis due to unspecified organism Qualified Code(s): A41.9 - Sepsis, unspecified organism Code(s): A41.9 - Sepsis, unspecified organism Status: Acute Assessment and Plan: Present on admission with fevers, leukocytosis and tachypnea. Now with septicemia from a urinary tract origin. No further fevers. Antibiotics per ID vancomycin 7 day treatment, IV day 2. Patient did not want to wait for insurance authorization and decided to sign out against medical advise. (2) Ureteral calculus, right: Code(s): N20.1 - Calculus of ureter Status: Acute Assessment and Plan: CT scan 09/09 showing a 4 mm proximal right ureteral calculus at the L3-4 level with mild right hydroureteronephrosis and mild probable pyelosinus extravasation. Urology took patient to OR 09/09 for right ureteral stent and cystoscope. We continued with Flomax. (3) Acute UTI: Code(s): N39.0 - Urinary tract infection, site not specified Status: Acute Assessment and Plan: As above. UA consistent with UTI. Levaquin started initially. UCx growing Coag Neg Staph as are both BCx from 09/09. Since patient recently had instrumention, assume is pathogen. Abx changed to vancomycin IV for 7 day treatment starting 09/12. Repeat BCx 09/11 NGTD. (4) CKD (chronic kidney disease): Code(s): N18.9 - Chronic kidney disease, unspecified Status: Acute Assessment and Plan: Creatinine 1.5 - 1.8 range this year. Cr here also running 1.5-1.8. Suspect this is more chronic renal failure with CrCl 60-70. (5) Hypercholesterolemia: Code(s): E78.00 - Pure hypercholesterolemia, unspecified Status: Acute Assessment and Plan: Stable. We continued Tricor (6) Peripheral neuropathy: Code(s): G62.9 - Polyneuropathy, unspecified Status: Chronic Assessment and Plan: Stable. We continued with gabapentin. (7) Migraine: Code(s): G43.909 - Migraine, unspecified, not intractable, without status migrainosus Status: Chronic Assessment and Plan: Stable. We continued Triptan and topiramate DS: Summary Hospital Course Reason for hospitalization: 45yo male with history of having kidney stones with recent ureteral stenting at [place] on 08/31/2020 here for subjective fever and chills. Please see H&P for details. Hospital Course: Please see above for details of hospital course. Status at Discharge Cognitive/behavioral status at discharge: PATIENT SIGNED OUT AGAINST MEDICAL ADVISE Time Spent with Patient Time attestation: Total time spent providing and/or coordinating discharge services: 34 minutes Time spent: Greater than 30 minutes Exam Narrative: Exam Narrative: AF 96.7 122/84 20 99% Gen - NARD Chest - CTA bilaterally, nml RR CV - RRR S1/S2 Abd -soft, NT/ND Back - mild left CVA tenderness Ext no pedal edema Psych - calm and appropriate Skin - warm and dry DS: Data Data Completed and Pending Labs on day of discharge: Labs from last 24 hours 09/13/20 04:47 Sodium 139 Potassium 3.7 Chloride 104 Carbon Dioxide 25 Anion Gap 10 BUN 19 Creatinine 1.80 H Estim Creat Clear Calc 60 Estimated GFR 41 L Glucose 106 Calcium 9.6 Preliminary micro results at discharge 09/09/20 09:44 Blood Culture - Preliminary Blood Coag negative Staphylococcus 09/11/20 12:57 Blood Culture - Preliminary Blood 09/11/20 12:57 Blood Culture - Preliminary Blood 09/09/20 09:44 Blood Culture - Preliminary Blood Coag negative Staphylococcus Discharge Plan Discharge Attending physician on discharge: Jose Ramon Rodriguez Consulting providers: Keaton Mayo ; Tom Chaudhry
--- NOTE | 2020-09-13 16:04 | WPDUROPN2 ---
Progress Note: A&P Assessment and Plan (1) Calculus, kidney: Code(s): N20.0 - Calculus of kidney Status: Acute Assessment and Plan: Will follow up in our office in 1-2 weeks to plan surgery and repeat a KUB. KUB done post operatively doesn't identify the stone, but stent is in place. (2) Sepsis: Qualifiers: Sepsis acute organ dysfunction status: unspecified Sepsis type: sepsis due to unspecified organism Qualified Code(s): A41.9 - Sepsis, unspecified organism Code(s): A41.9 - Sepsis, unspecified organism Status: Acute Assessment and Plan: Start oral Bactrim which was confirmed to be okay with Dr. Chaudhry. He refused the recommendation of Vancomycin in a PICC line at home by Dr. Brown. Subjective Subjective Date/Time Seen: 09/13/20 16:05 POD #4 Cystoscopy, Right RPG, Right stent placement. Feeling very good, no stent pain. Urine culture growing Staph, repeat culture pending. Patient was recommended to have a PICC line place and to go home with 7 days of Vanomycin to treat septic UTI, but he is refusing and wishes to take oral antibiotics. Although this is not what Dr. Brown recommends, Dr. Chaudhry and I discussed going home on 7 days of oral Bactrim and he is comfortable with that. Objective Data Vital Signs Vital Signs: Vital Signs - 24 hr 09/12/20 20:28 09/13/20 05:18 09/13/20 14:00 Temperature 99.3 F 96.7 F L 97.4 F L Pulse Rate 88 86 8 L Respiratory Rate 18 20 18 Blood Pressure 118/78 122/84 114/74 Pulse Oximetry 100 99 99 Intake/Output Intake/Output: Intake & Output 09/10/20 09/11/20 09/12/20 09/13/20 23:59 23:59 23:59 23:59 Intake Total 4060 5290 1590 960 Output Total 2400 3550 2250 400 Balance 1660 1740 -660 560 Meds/Results Medications: Active Medications Generic Name Dose Route Start Last Admin Trade Name Freq PRN Reason Stop Dose Admin Acetaminophen 650 mg 09/10/20 17:06 09/11/20 17:10 Acetaminophen 325 Mg Tablet PO 650 mg Q6H PRN Administration Mild Pain (1-3) or Fever Hydrocodone Bitart/Acetaminophen 1 tab 09/09/20 17:42 09/13/20 06:35 Hydrocodone/Acetaminophen (*Crx) 10-325 Mg Tablet PO 1 tab Q4-6H PRN Administration PAIN RATED 4-6 Cyclobenzaprine HCl 10 mg 09/09/20 18:00 09/12/20 17:02 Cyclobenzaprine Hcl 10 Mg Tablet PO 10 mg QPM AMOS Administration Enoxaparin Sodium 40 mg 09/10/20 21:00 09/12/20 20:35 Enoxaparin 40 Mg/0.4 Ml Syringe SUB-Q 40 mg HS AMOS Administration Fenofibrate 145 mg 09/09/20 21:00 09/12/20 20:36 Fenofibrate Nanocrystallized 145 Mg Tablet PO 145 mg HS AMOS Administration Gabapentin 600 mg 09/09/20 18:00 09/12/20 17:02 Gabapentin 300 Mg Capsule PO 600 mg QPM AMOS Administration Gabapentin 300 mg 09/10/20 09:00 09/13/20 08:58 Gabapentin 300 Mg Capsule PO 300 mg QAM AMOS Administration Vancomycin HCl 1,750 mg in 500 mls @ 250 mls/hr 09/12/20 13:00 09/13/20 06:35 Vancomycin 1,750 Mg/D5w 500 Ml IVPB 100 mls/hr Q18H AMOS Administration Sumatriptan Succinate 100 mg 09/09/20 17:52 Sumatriptan Succinate 25 Mg Tablet PO PRN PRN Migraine Headache Tamsulosin HCl 0.4 mg 09/10/20 09:00 09/13/20 08:58 Tamsulosin Hcl 0.4 Mg Capsule PO 0.4 mg DAILY AMOS Administration Topiramate 50 mg 09/09/20 17:55 09/13/20 13:40 Topiramate 25 Mg Tablet PO 50 mg TID AMOS Administration Vitamin D 2,000 units 09/10/20 09:00 09/13/20 08:57 Cholecalciferol 1,000 Units Tablet PO 2,000 units DAILY AMOS Administration Radiology Results: ITS Impressions Chest X-Ray 09/09/20 10:04 IMPRESSION: Mild discoid atelectasis, discoid scarring and/or mild infiltrate in the right lower lung Abdomen/Pelvis CT 09/09/20 11:28 IMPRESSION: 4 mm proximal right ureteral calculus at L3-4 level with mild right hydroureteronephrosis and pyelosinus extravasation 3 mm and 6 mm lower pole nonobstructing righ
--- NOTE | 2020-09-13 16:38 | PC.NURSE ---
Patient is alert and oriented. He expressed to staff that he needed to leave by 5 pm. Care coordination had been working with getting prior authorization for patient to receive IV antibiotics at home. Dr Brown has been following patient and had recommended patient to receive vancomycin IV x 7 days. Today was day 2 of those iv antibiotics. Dr Brown was updated that patient wanted to know if he could take a PO antibiotic and discharge home. Dr Brown stated he was okay with the PO antibiotic but he was not okay with patient discharging home at this time. Dr Rodriguez also updated and he agreed with Dr Brown. Wendie Gaffney from Urology also consulted and she spoke with Dr Chaudhry regarding the patient wishes to discharge home on PO medications. Urology was okay per their standpoint and they did give patient a script for the PO antibiotic for discharge. Patient was updated that he would be leaving against medical advice. He was educated that he would benefit more from the IV antibiotic therapy due to having the infection in the blood stream along with the UTI. Patient stated he did not care and he wanted to discharge. Patient did sign the paperwork to leave against medical advice. He called for someone to come and pick him up. The script for Septra was sent to the [facility] in [place].
--- NOTE | 2020-09-27 09:52 | PC.NURSE ---
Blood cx are negative. Dr. Jennifer webber.
== END 2020-09-13 17:00 | disposition left against medical advice (07) | DRG 720 ==
LOC: ANHED 11:56 → ANHSURGERY 12:23 → ANH3MEDSUR 14:56 → ANHTRC 09-13 07:05 → ANH3MEDSUR 09-15 15:43 → ANHTRC 09-15 15:43
PROVIDERS: Nurse Practitioner; Urology; Admitting Provider Family Medicine; Emergency Provider Emergency Medicine; PCP Family Medicine; Visit Provider Internal Medicine
PROC: 0T768DZ Dilation of Right Ureter with Intraluminal Device, Via Natural or Artificial Opening Endoscopic (ICD-10-PCS; CPT 52352; principal; 2020-09-09 13:45)
DX: N13.6 Pyonephrosis (principal); A41.9 Sepsis, unspecified organism; Z20.828 Contact with and (suspected) exposure to other viral communicable diseases; N18.9 Chronic kidney disease, unspecified; E78.00 Pure hypercholesterolemia, unspecified; G62.9 Polyneuropathy, unspecified; G43.909 Migraine, unspecified, not intractable, without status migrainosus; Z79.899 Other long term (current) drug therapy; Z88.0 Allergy status to penicillin
CPT/HCPCS: 36415; 71045; 74018; 74176; 74420; 80048; 80053; 81001; 82948; 83605; 83735; 84443; 84484; 85025; 85610; 85730; 86140; 87040; 87077; 87086; 87088; 87186; 87635; 87804; 93005; 96361; 96365; 96375; 99285; A9270; C1769; C1887; C2617; C9803; G0378; G0379; J0131; J0744; J1650; J1956; J2405; J3370; J7030; J7120; Q9966; U0003

== ENCOUNTER 2020-09-21 11:57 | Outpatient (CLI) | payer OTHER, SELFPAY ==
--- NOTE | ~2020-09-21 | XR_ITS ---
EXAMINATION: XR abdomen/kub 1V INDICATION: Right-sided kidney stone TECHNIQUE: Supine views of the abdomen were obtained on 2 radiographs. COMPARISON: 09/12/2020 FINDINGS: A right internal ureteral stent is in expected position. A 6 mm stone projects adjacent to the proximal aspect of the stent at the expected location of the ureteropelvic junction between the r ight L1 and L2 transverse processes. There is a questionable 3 mm stone projecting near the mid aspec t of the stent between the right L3 and L4 transverse processes. The bowel gas pattern is normal. No nephrolithiasis is identified. IMPRESSION: 1. Right internal ureteral stent in expected position with stone adjacent to the stent at the uretero pelvic junction and possible stone adjacent to the mid ureter. Reviewed, dictated and finalized at location A. EMS COORDINATOR IMPRESSION: 1. Right internal ureteral stent in expected position with stone adjacent to th e stent at the ureteropelvic junction and possible stone adjacent to the mid ur eter.
== END 2020-09-21 11:58 | disposition home or self-care (01) ==
PROVIDERS: PCP Family Medicine; Visit Provider Urology
DX: N20.0 Calculus of kidney (principal)
CPT/HCPCS: 74018

== ENCOUNTER 2020-09-26 09:09 | Outpatient (CLI) | payer OTHER, SELFPAY ==
[2020-09-26 18:50] LABS: SARS-CoV-2 RNA PCR Negative
== END 2020-09-26 09:10 | disposition home or self-care (01) ==
LOC: ANHCOVIDDT 09:09
PROVIDERS: PCP Family Medicine; Visit Provider Urology
DX: Z01.812 Encounter for preprocedural laboratory examination (principal); Z20.822 Contact with and (suspected) exposure to COVID-19
CPT/HCPCS: C9803; U0003

== ENCOUNTER 2020-09-29 00:24 | Day surgery (SDC) | payer OTHER, SELFPAY ==
[2020-09-26 10:35] VITALS: BMI 29.9
--- NOTE | 2020-09-28 13:04 | WPDANESEPPF ---
Anes - Initial Pre Proc Eval Procedure: Operation Date: 09/29/20 09:30 Proposed Procedures p Cystoscopy, Right Ureteroscopy, Right Retrograde Pyelogram, Right Stone Extraction, Possible Right Stent Placement, - Tom Chaudhry MD s Possible Holmium Laser Procedure - Tom Chaudhry MD Date/Time: 09/28/20 13:04 Surgeon: Tom Chaudhry MD Pre Op Diagnosis: right kidney stone Patient Data Age: 45 Gender: M Height: 1.96 m Weight: 114.31 kg Allergies Allergy/AdvReac Type Severity Reaction Status Date / Time Penicillins Allergy Severe Anaphylactic Verified 09/29/20 07:32 Shock COCONUT Allergy Mild Rash Uncoded 09/29/20 07:32 Home Medications Medication Instructions Recorded Confirmed Type fenofibrate nanocrystallized 145 mg PO HS 08/29/20 09/29/20 History gabapentin 300 mg PO QAM 08/29/20 09/29/20 History naproxen 500 mg PO BID 08/29/20 09/29/20 History simvastatin 20 mg QPM 08/29/20 09/29/20 History topiramate 50 mg PO TID 08/29/20 09/29/20 History cholecalciferol (vitamin D3) 2,000 unit PO DAILY 09/09/20 09/29/20 History cyclobenzaprine 10 mg PO QPM 09/09/20 09/29/20 History gabapentin 600 mg PO QPM 09/09/20 09/29/20 History hydrocodone-acetaminophen [Lortab 1 tablet PO Q4-6H PRN 09/09/20 09/29/20 History 10-325] sumatriptan 100 mg PO PRN PRN 09/09/20 09/29/20 History Patient hx anesthesia problems: none Family hx anesthesia problems: none PMFSH Past Medical History Medical History (Updated 09/28/20 @ 13:05 by Prosper Wren DO) Chronic, continuous use of opioids Hypercholesterolemia Lumbar strain Migraine Nephrolithiasis Peripheral neuropathy Tear of meniscus of left knee Surgical History Surgical History (Updated 09/09/20 @ 15:10 by Lorelei Toledo NP) History of arthroplasty of left knee S/P ureteral stent placement and 09/09/2020 Family History Family History Father Diabetes mellitus Mother No family history of diabetes mellitus Fibromyalgia Dementia IBS (irritable bowel syndrome) Social History Social History (Updated 09/09/20 @ 15:24 by Lorelei Toledo NP) Social History: the patient lives with his and his is the durable power family law attorney for healthcare. The patient is a full code. The patient is currently not working and is applying for disability. The patient is a lifelong nonsmoker. He does not drink alcohol are smoked marijuana or do any other illicit drugs. Smoking packs per day: 0.5 Smoking cigarettes per day: 10.0 Years smoked: 33 Smoking pack-years: 16.50 Smoking status: Current every day smoker Tobacco type: cigarettes Second hand tobacco smoke exposure: Yes Smoking end date: 09/23/10 Alcohol intake: current Living arrangements: other Gender identity (if verbalized by the patient): Male Spiritual care concerns: No Anes - Eval Final PreProcedure Day of Procedure 09/28/20 13:04 Patient weight: overweight Heart: regular rate and rhythm Lungs: clear to auscultation and normal air movement Airway: Mallampati scale class II Neurological: alert and oriented Last oral intake: >/= 8 hours ASA classification: III Emergent: no Anesthetic plan: proceed Anesthesia type and monitoring: general LMA and standard monitoring Informed Consent: The patient's anesthetic plan and its attendant risks and benefits were discussed with the patient/family/POA. Questions were solicited and answers provided to the satisfaction of the patient/family/POA.
[2020-09-29] VITALS (7 sets, daily range): BP systolic 75–129; BP diastolic 48–83; PULSE 63–78; RESP 14–16; TEMP 36.5–37.1; O2SAT 98–100
--- NOTE | ~2020-09-29 | XR_ITS ---
EXAMINATION: XR retrograde pyelo w/stent RT DATE: 09/29/2020 09:44 INDICATION: Right internal ureteral stent replacement TECHNIQUE: Fluoroscopic images from a right internal ureteral stent placement are submitted for tiff payan 59 seconds of fluoroscopy time. 85 fluoroscopic images. FINDINGS: There is a right double-J internal ureteral stent projecting in expected position, with proximal Crawford loop at the level of the renal pelvis and distal loop in the pelvis within the bladder lumen. IMPRESSION: 1. Right internal ureteral stent replacement. Please refer to real-time procedural findings for det ails. Reviewed, dictated and finalized at location A. TREATING INSPECTOR IMPRESSION: 1. Right internal ureteral stent replacement. Please refer to real-time proce dural findings for details.
[2020-09-29] MEDS: LACTATED RINGERS 1,000 ML 30 ML IV CONT ×2 (07:55→09:55)
--- NOTE | 2020-09-29 08:45 | WPDHPUPDATE1 ---
History and Physical Update Update Date/Time: 09/29/20 08:45 History and Physical has been reviewed, including an updated exam of the patient. There are NO changes in the patient's condition. Risks, benefits, and alternatives have been discussed and questions answered. Patient agrees to proceed with procedure.
[2020-09-29] MEDS: levoFLOXacin 500 MG/D5W 100 ML 500 MG/100 ML BAG 100 MG IVPB (08:53)
[2020-09-29] MEDS: LIDOCAINE HCL 2% GEL UROJET 10 ML PKG MUCOUS MEM (08:57)
--- NOTE | 2020-09-29 09:45 | PM.PROC ---
Procedure Note - Detailed Date of procedure: 09/29/20 Pre-op diagnosis: right kidney stone Post-op diagnosis: same Procedure performed: 1. Cystoscopy with right stent removal 2. Right retrograde pyelogram 3. Right ureteroscopy with laser lithotripsy and stone extraction 4. Right ureteral stent replacement Description of procedure: Patient is brought to the operative suite was prepped and draped in routine sterile fashion while in a dorsal lithotomy position. Cystoscopy was undertaken with a 21 F rigid cystoscope in the tip of the indwelling stent is brought to the external urethral meatus. A 0.035 in glidewire was advanced in the right renal pelvis. The distal ureters dilated 1st with an 8 F 10 F dilator and then a 12 F/ 14 F ureteral access sheath was placed. Ureteroscopy was then taken the 7.5 F flexible ureteral scope. His mid ureteral stone is still in the mid ureter. It is pushed back into a lower pole calyx with the larger stone also exists. Using a 272 micron holmium laser fiber the stones were fractured into multiple tiny pieces. All large pieces were extracted with either a 1.9 F escape or a 1.9 F 0 tip basket. Patient has no identifiable significant residual stone fragments left. I did replace a 4.8 F variable length stent with proximal coil in his renal pelvis and distal coil in the bladder. Anesthesia: GLMA Surgeon: Tom Chaudhry MD Estimated blood loss (mL): 0 Drains: Yes (4.8F right ureteral stent) Packing: No Pathology: yes (Right ureteral stone) Complications: No immediate complications Condition: stable Disposition: PACU
== END 2020-09-29 10:55 | disposition home or self-care (01) ==
PROVIDERS: PCP Family Medicine; Visit Provider Urology
PROC: (CPT 52352; principal; 2020-09-29 09:30)
PROC: (CPT 52356; 2020-09-29 09:30)
DX: N20.1 Calculus of ureter (principal); E78.00 Pure hypercholesterolemia, unspecified; G62.9 Polyneuropathy, unspecified; F17.210 Nicotine dependence, cigarettes, uncomplicated
CPT/HCPCS: 52356; 74420; 82365; 88300; A9270; C1769; C1894; C2617; J1100; J1956; J2001; J2250; J2370; J2405; J2704; J3010; J7120; Q9966

== ENCOUNTER 2021-01-07 09:34 | Outpatient (CLI) | payer OTHER, SELFPAY ==
--- NOTE | ~2021-01-07 | XR_ITS ---
XR abdomen/kub 1V DATE: 01/07/2021 09:47 INDICATION: Right kidney stone TECHNIQUE: AP projection, 2 views COMPARISON: 09/21/2020 KUB FINDINGS: Interval removal of right internal urinary stent and resolution of proximal right ureteral calcified calculus since 09/21/2020. No urinary tract calcifications are noted. The psoas shadows are intact. No visceromegaly. No evidence of bowel obstruction. Included skeletal structures are unremarkable. IMPRESSION: Negative KUB; no evidence of calcified urinary tract calculi Reviewed, dictated and finalized at Location A. Reviewed, dictated and finalized at location A.
== END 2021-01-07 09:35 | disposition home or self-care (01) ==
LOC: ANHIMG 09:38
PROVIDERS: PCP Family Medicine; Visit Provider Urology
DX: N20.0 Calculus of kidney (principal)
CPT/HCPCS: 74018

== ENCOUNTER 2021-02-10 07:20 | Outpatient (CLI) | payer OTHER, SELFPAY ==
[2021-02-10 08:02] LABS: Basophils Absolute Auto 0.1 K/mm3 (0.0-0.1); Eosinophils Absolute Auto 0.4 K/mm3 (0-0.3); Eosinophils Percent Auto 5.7 % (0-4.4); Hematocrit 43.3 % (42.0-52.0); Hemoglobin 14.8 g/dL (14.0-18.0); Immature Granulocyte Absolute 0.05 K/mm3 (0.00-0.031); Immature Granulocyte Percent A 0.7 % (0-0.5); Lymphocytes Absolute Auto 2.22 K/mm3 (0.9-3.2); Lymphocytes Percent Auto 32.2 % (18.3-44.2); Mean Corpuscular HGB Conc 34.2 g/dl (32-36); Mean Corpuscular Hemoglobin 30.4 pg (26-34); Mean Corpuscular Volume 88.9 fl (80-100); Mean Platelet Volume 9.9 fl (7.4-10.4); Monocytes Absolute Auto 0.5 K/mm3 (0.1-0.6); Monocytes Percent Auto 7.8 % (2.6-8.5); Neutrophils Absolute Auto 3.6 K/mm3 (1.3-6.7); Neutrophils Percent Auto 52.6 % (45.5-73.1); Platelet Count Result 211 k/mm3 (150-375); Red Blood Count 4.87 M/mm3 (4.6-6.20); Red Cell Distribution Width 13.1 % (11.5-14.5); White Blood Count 6.9 K/mm3 (4.5-10.0)
[2021-02-10 08:40] LABS: Creatinine Urine 225.3 mg/dL
[2021-02-10 08:41] LABS: Alanine Aminotransferase 47 U/L (4-50); Albumin Level 4.2 g/dL (3.5-5.1); Alkaline Phosphatase 40 U/L (38-126); Anion Gap 7 mmol/L (8-16); Aspartate Amino Transferase 32 U/L (17-59); Bilirubin,Total 0.4 mg/dL (0.2-1.3); Blood Urea Nitrogen 20 mg/dL (9-20); Calcium 9.3 mg/dL (8.4-10.2); Carbon Dioxide 26 mmol/L (22-30); Chloride 108 mmol/L (98-107); Cholesterol 141 mg/dL (0-200); Estimated Glomerular Filt Rate 55; Glucose 106 mg/dL (75-110); HDL Direct 25 mg/dL; Potassium 3.8 mmol/L (3.4-5.0); Sodium 141 mmol/L (137-145); Triglycerides 135 mg/dL (<150)
[2021-02-10 08:44] LABS: MALB Creatinine Ratio 2.8 mg/g (0-30); Microalbumin Urine Random 6.4 mg/L (0-16.7)
[2021-02-10 08:54] LABS: LDL Cholesterol Direct 99 mg/dL
[2021-02-10 09:28] LABS: Total Triiodothyronine (T3) 1.32 NG/ML (0.97-1.69)
[2021-02-10 09:44] LABS: Vitamin D 25 Hydroxy 47.1 ng/mL
== END 2021-02-10 07:21 | disposition home or self-care (01) ==
LOC: ANHLAB 07:25
PROVIDERS: PCP Family Medicine; Visit Provider Family Medicine
DX: E78.2 Mixed hyperlipidemia (principal); R60.9 Edema, unspecified; R03.0 Elevated blood-pressure reading, without diagnosis of hypertension; R53.83 Other fatigue; M62.81 Muscle weakness (generalized); M25.50 Pain in unspecified joint; E55.9 Vitamin D deficiency, unspecified
CPT/HCPCS: 36415; 80053; 80061; 82043; 82306; 84439; 84443; 84480; 85025

== ENCOUNTER 2021-02-13 10:57 | Outpatient (CLI) | payer OTHER, SELFPAY ==
[2021-02-13 11:59] LABS: Add Urine Microscopic? YES; Appearance Urine Clear (Clear); Bilirubin Urine Negative (Negative); Blood Urine Negative (Negative); Calcium Oxalate Crystals Urine Present /hpf; Color Urine Yellow (Yellow); Glucose Urine UA Negative (Negative); Ketones Urine Negative (Negative); Leukocyte Esterase Ur Negative LEU/UL (NEGATIVE); Mucus Urine Rare /lpf; Nitrate Urine Negative (Negative); Protein Urine Negative (Negative); RBC Urine 0-2 /hpf (0-2); Squamous Epithelial Cell Urine Rare /hpf (Few); WBC Urine 0-3 /hpf (0-3)
[2021-02-13 12:09] LABS: CRP 0.6 mg/dL (<1.0); Creatine Kinase 1353 U/L (55-170); Uric Acid 4.5 mg/dL (3.5-8.5)
[2021-02-13 12:16] LABS: Complement C3 113 mg/dL (88-165); Rheumatoid Factor < 8.6 IU/ML (<12)
[2021-02-13 12:44] LABS: Erythrocyte Sedimentation Rate 3 mm/hr (0-20)
[2021-02-13 12:57] LABS: Hepatitis B Surface Antigen Negative (Negative)
[2021-02-13 13:15] LABS: Hepatitis C Virus Antibody Negative (Negative)
[2021-02-16 13:59] LABS: Complement Total CH50 >60 U/mL (31-60)
[2021-02-17 22:00] LABS: Histone Antibody <1.0 U (<1.0)
[2021-02-21 12:48] LABS: Chromatin Antibody <1.0; RNP Antibodies <1.0; SS-A <1.0; SS-B <1.0
[2021-02-21 16:27] LABS: Anti Centromere B Antibody <1.0; SM Antibody <1.0; SM/RNP Antibody <1.0
[2021-02-21 22:59] LABS: Scleroderma 70 Antibody <1.0
== END 2021-02-13 10:58 | disposition home or self-care (01) ==
PROVIDERS: PCP Family Medicine; Visit Provider Nurse Practitioner Family
DX: E78.2 Mixed hyperlipidemia (principal); R60.9 Edema, unspecified; R03.0 Elevated blood-pressure reading, without diagnosis of hypertension; R53.83 Other fatigue; M62.81 Muscle weakness (generalized); Z00.00 Encounter for general adult medical examination without abnormal findings; M25.50 Pain in unspecified joint
CPT/HCPCS: 36415; 81001; 82550; 83516; 84550; 85652; 86038; 86140; 86160; 86162; 86225; 86235; 86430; 86803; 87340

== ENCOUNTER 2022-06-28 13:19 | Observation (INO) | payer OTHER, SELFPAY ==
[2022-06-28] VITALS (12 sets, daily range): BP systolic 97–127; BP diastolic 72–89; PULSE 68–158; RESP 18–28; TEMP 36.4–36.8; O2SAT 94–99; BMI 32.7
--- NOTE | ~2022-06-28 | XR_ITS ---
EXAMINATION: XR chest 1V portable DATE: 06/28/2022 13:50 INDICATION: Chest pain. ST elevation myocardial infarction. TECHNIQUE: A single frontal view of the chest was obtained. COMPARISON: Chest single view 09/09/2020, CT abdomen and pelvis 09/09/2020 FINDINGS: There is mild atelectasis in left lower lung zone. No pleural effusion or pneumothorax. The heart size is normal. IMPRESSION: 1. Mild atelectasis in left lower lung zone. Reviewed, dictated and finalized at location A.
--- NOTE | ~2022-06-28 | CT_ITS ---
EXAMINATION: CT BRAIN W/O DATE: 06/28/2022 14:50 INDICATION: Dizziness TECHNIQUE: Computed tomography (CT) of the head was performed without intravenous contrast. The dose- length product was 681.00 mGy-cm. Automated exposure control and iterative reconstruction technique w ere employed. COMPARISON: No prior studies for comparison. FINDINGS: Normal brain parenchymal volume for age. Normal fleming-white differentiation. No acute intrac ranial hemorrhage, infarction, mass or mass effect. No ventriculomegaly or midline shift. Midline sagittal images demonstrate a normal corpus callosum, c raniovertebral junction and sella turcica. Basilar cisterns are patent. There is mild mucosal thickening of the ethmoid and frontal sinuses. Small left mastoid effusion. No depressed skull fractures. IMPRESSION: 1. No acute intracranial abnormality. 2: Mild sinus disease. Reviewed, dictated and finalized at location A.
--- NOTE | 2022-06-28 13:22 | ECG_ITS ---
Measurements Intervals [place] Rate: 163 P: [place]: 0 QRS: 106 QRSD: 146 T: -12 QT: 247 QTc: 408 Interpretive Statements POSSIBLE ATRIAL FLUTTER RIGHT BUNDLE BRANCH BLOCK [120+ ms QRS DURATION, UPRIGHT V1, 40+ ms S IN I/aVL/V4/V5/V6] MARKED ST DEPRESSION, CONSIDER SUBENDOCARDIAL INJURY [0.2+ mV ST DEPRESSION] COMPARED TO ECG 09/09/2020 09:36:43 POSSIBLE ATRIAL FLUTTER NOW PRESENT Electronically Signed On 06-28-2022 17:35:11 CDT by Lainey Ba M.D.
[2022-06-28 13:27] LABS: Glucose Point of Care 249 mg/dl (65-105)
--- NOTE | 2022-06-28 13:32 | ED.CHESTPAIN ---
HPI - Chest Pain General Chief Complaint: Chest Pain Stated Complaint: STEMI Source: RN notes reviewed History of Present Illness HPI narrative: [facility] [place] [facility]. Patient states approximate 09/06/2016 he began feeling his heart was racing he had midsternal chest pain described as a pressure states that he feels short of breath with the episode as well as some nausea. When EMS arrived he was noted to be tachycardic and had ST depression and a code STEMI was called in the field the patient was given aspirin as well as nitroglycerin patient denies any previous cardiac history states he does have history of diabetes hypercholesterolemia also smokes a pack and a half of cigarettes a day he fevers or chills denies any history of arrhythmia. Patient was given aspirin 3 and 24 mg and nitro by EMS Related Data Home Medications Medication Instructions Recorded Confirmed fenofibrate nanocrystallized 145 145 mg PO HS 08/29/20 09/29/20 mg tablet gabapentin 300 mg capsule 100 mg PO QAM 08/29/20 09/29/20 naproxen 500 mg tablet 500 mg PO BID 08/29/20 09/29/20 topiramate 50 mg tablet 50 mg PO TID 08/29/20 09/29/20 cyclobenzaprine 10 mg tablet 10 mg PO QPM 09/09/20 09/29/20 gabapentin 300 mg capsule 300 mg PO QPM 09/09/20 09/29/20 sumatriptan 100 mg PO PRN PRN Migraine Headache 09/09/20 09/29/20 ergocalciferol (vitamin D2) 1,250 06/28/22 mcg (50,000 unit) capsule metformin 500 mg tablet mg 06/28/22 metoprolol succinate 50 mg mg PO 06/28/22 tablet,extended release 24 hr omeprazole 20 mg capsule,delayed mg 06/28/22 release ropinirole 1 mg tablet mg 06/28/22 simvastatin 80 mg tablet mg 06/28/22 Allergies Allergy/AdvReac Type Severity Reaction Status Date / Time Penicillins Allergy Severe Anaphylactic Verified 06/28/22 13:34 Shock COCONUT Allergy Mild Rash Uncoded 06/28/22 13:34 Review of Systems Review of Systems: Gen.: Denies fevers or chills ENT: Denies congestion Respiratory: Reports shortness of CV: See HPI GI: Denies abdominal pain , emesis or diarrhea reports nausea Musculoskeletal: Denies back pain or muscle pain Neuro: Denies numbness, tingling, weakness or focal weakness Skin: Denies rash Except as documented, all other systems reviewed and negative [facility] Past Medical History Medical History Chronic, continuous use of opioids Hypercholesterolemia Lumbar strain Migraine Nephrolithiasis Peripheral neuropathy Tear of meniscus of left knee Surgical History Surgical History (Updated 09/09/20 @ 15:10 by Lorelei Toledo NP) History of arthroplasty of left knee S/P ureteral stent placement and 09/09/2020 Family History Family History Father Diabetes mellitus Mother No family history of diabetes mellitus Fibromyalgia Dementia IBS (irritable bowel syndrome) Social History Social History Social History: the patient lives with his and his is the durable power attorney lawyer for healthcare. The patient is a full code. The patient is currently not working and is applying for disability. The patient is a lifelong nonsmoker. He does not drink alcohol are smoked marijuana or do any other illicit drugs. Smoking packs per day: 0.5 Smoking cigarettes per day: 10.0 Years smoked: 33 Smoking pack-years: 16.50 Smoking status: Current every day smoker Tobacco type: cigarettes Second hand tobacco smoke exposure: Yes Smoking end date: 09/23/10 Alcohol intake: current Gender identity (if verbalized by the patient): Male Sexual Orientation (if Verbalized by the Patient): Straight or Heterosexual Spiritual care concerns: No Exam Narrative: APPEARANCE: No acute distress, nontoxic, resting in bed EYES: EOMI HEENT: Normocephalic, atraumat
[2022-06-28 13:34] LABS: Basophils Absolute Auto 0.1 K/mm3 (0.0-0.1); Basophils Percent Auto 0.8 % (0.2-1.2); Eosinophils Absolute Auto 0.4 K/mm3 (0-0.3); Eosinophils Percent Auto 3.9 % (0-4.4); Hematocrit 50.6 % (42.0-52.0); Hemoglobin 17.8 g/dL (14.0-18.0); Immature Granulocyte Absolute 0.04 K/mm3 (0.00-0.031); Immature Granulocyte Percent A 0.4 % (0-0.5); Lymphocytes Absolute Auto 3.14 K/mm3 (0.9-3.2); Lymphocytes Percent Auto 31.5 % (18.3-44.2); Mean Corpuscular HGB Conc 35.2 g/dl (32-36); Mean Corpuscular Volume 85.2 fl (80-100); Mean Platelet Volume 10.5 fl (7.4-10.4); Monocytes Absolute Auto 0.5 K/mm3 (0.1-0.6); Monocytes Percent Auto 5.4 % (2.6-8.5); Neutrophils Absolute Auto 5.8 K/mm3 (1.3-6.7); Platelet Count Result 197 k/mm3 (150-375); Red Blood Count 5.94 M/mm3 (4.6-6.20); Red Cell Distribution Width 13.2 % (11.5-14.5)
[2022-06-28] MEDS: SODIUM CHLORIDE 0.9% IV 1,000 ML 999 ML IV CONT (13:40)
[2022-06-28] MEDS: AMIODARONE 150 MG/D5W 100 ML 150 MG/100 ML BAG 600 MG IV CONT (13:41)
[2022-06-28 13:49] LABS: Alanine Aminotransferase 50 U/L (6-50); Albumin Level 4.7 g/dL (3.5-5.1); Alkaline Phosphatase 85 U/L (38-126); Anion Gap 14 mmol/L (8-16); Aspartate Amino Transferase 39 U/L (17-59); Bilirubin,Total 0.8 mg/dL (0.2-1.3); Blood Urea Nitrogen 13 mg/dL (9-20); Calcium 9.3 mg/dL (8.4-10.2); Carbon Dioxide 18 mmol/L (22-30); Chloride 106 mmol/L (98-107); Cholesterol 133 mg/dL (0-200); Estimated CRCL calculation 120 ml/min; Estimated Glomerular Filt Rate > 60; Glucose 238 mg/dL (65-110); HDL Direct 26 mg/dL; Magnesium 1.8 mg/dL (1.6-2.3); Sodium 138 mmol/L (137-145); Triglycerides 288 mg/dL (<150)
[2022-06-28 13:55] LABS: INR 1.1; Partial Thromboplastin Time 26.6 SECONDS (22.3-36.8); Prothrombin Time 13.3 Seconds (11.1-14.7)
[2022-06-28] MEDS: AMIODARONE 360 MG/D5W 200 ML 360 MG/200 ML BAG 33.33 MG IV CONT (13:56)
--- NOTE | 2022-06-28 13:59 | PC.NURSE ---
Lab rejected pink top because it was hemolyzed and short . heavy line technician Jane Vera aware and will redraw.
[2022-06-28 14:00] LABS: LDL Cholesterol Direct 81 mg/dL; Troponin I < 0.012 ng/mL (0.000-0.034)
--- NOTE | 2022-06-28 14:48 | ECG_ITS ---
Measurements Intervals [place] Rate: 153 P: 187 [place]: 76 QRS: 95 QRSD: 149 T: -10 QT: 333 QTc: 531 Interpretive Statements POSSIBLE ATRIAL FLUTTER RIGHT BUNDLE BRANCH BLOCK [120+ ms QRS DURATION, UPRIGHT V1, 40+ ms S IN I/aVL/V4/V5/V6] MARKED ST DEPRESSION, CONSIDER SUBENDOCARDIAL INJURY [0.2+ mV ST DEPRESSION] COMPARED TO ECG 06/28/2022 13:24:48 NO SIGNIFICANT CHANGES Electronically Signed On 06-28-2022 17:36:14 CDT by Lainey Ba M.D.
--- NOTE | 2022-06-28 15:05 | ADMGEN ---
This patient, Rommel Morales, was admitted to IMU Room 212-01. Patient/family oriented to hospital policies and general routines including ID bracelet, bed and alarms, visiting hours, pain management, procedures, bathroom and other care routines, personal items, smoking policy, room service/diet, and visiting hours. Information on how to activate the Rapid Response Team has been discussed. Patient/Family are encouraged to report perceived risks to care and to ask questions if they do not understand what they are told or what they should do.
[2022-06-28 15:34] LABS: Glucose Point of Care 268 mg/dl (65-105)
--- NOTE | 2022-06-28 16:20 | PC.NURSE ---
ROSIO Moseley notified of patient arrival.
[2022-06-28] MEDS: SUMAtriptan SUCCINATE 25 MG TABLET 100 MG PO (16:56)
[2022-06-28] MEDS: ENOXAPARIN 80 MG/0.8 ML SYRINGE 127 MG SUB-Q (17:23)
[2022-06-28] MEDS: GABAPENTIN 300 MG CAPSULE PO (17:27)
[2022-06-28] MEDS: CYCLOBENZAPRINE HCL 10 MG TABLET PO (17:27)
[2022-06-28 17:49] LABS: Glucose Point of Care 212 mg/dl (65-105)
[2022-06-28] MEDS: INSULIN ASPART (*BKC) 100 UNITS/ML SUB-Q (17:57)
--- NOTE | 2022-06-28 18:10 | PM.IMHP ---
H&P: HPI History of Present Illness Date/Time: 06/28/22 18:10 Chief Complaint: Chest pain Narrative: this is a 47-year-old male patient who has a history of hypertension and diabetes. He also has a history migraines. The patient came to the emergency room from the [facility] when he developed chest pain. The patient stated that he his were despite ready to go and he complained of this palpitations and chest pain. The patient has had a previous experience like this back in 09/06/2016 where he felt his heart racing and had midsternal chest pain at that time. Today the patient had tachycardia and some ST depression a code STEMI was called in the field and the patient was given aspirin and nitroglycerin. The nitroglycerin gave the patient a migraine. He was given Imitrex for the migraine. The patient had no nausea vomiting or chills. EKG was noted to be possible atrial flutter with a right bundle-branch block. Heart rate 153. His blood pressure was low so we started on amiodarone. Patient is currently in sinus rhythm. The patient was started on subcu Lovenox and given Lopressor x1. Cardiology has been consulted. The patient is being admitted to observation status on the date of service of 06/28/2022. Review of Systems Review of Systems: See HPI All systems reviewed & are unremarkable except as noted in HPI and below Constitutional: Constitutional: Reports as per HPI and Reports no additional constitutional complaints Eyes: Eyes: Reports as per HPI and Reports no additional eye complaints ENT: Reports system reviewed and no additional complaints, except as documented and Reports Normal hearing present Cardiovascular: Cardiovascular: Reports no additional cardiovascular complaints Respiratory: Respiratory: Reports no additional respiratory complaints and Reports no additional respiratory complaints Gastrointestinal: Gastrointestinal: Reports as per HPI and Reports no additional gastrointestinal complaints Musculoskeletal: Musculoskeletal: Reports no additional musculoskeletal complaints Integumentary/Breasts: Skin/Breast: Reports system reviewed and no additional complaints, except as docu and Reports as per HPI Neurologic: Reports system reviewed and no additional complaints, except as documented, Reports as per HPI and Reports Normal hearing present Psychiatric: Psychiatric: Reports no additional psychiatric complaints and Reports as per HPI Endocrine: Endocrine: Reports no additional endocrine complaints Hematologic/Lymphatic: Hematologic/Lymphatic: Reports no additional hematologic/lymphatic complaints Allergic/Immunologic: Allergic/Immunologic: Reports no additional allergic/immunologic complaints [facility] Past Medical History Medical History (Updated 06/28/22 @ 22:07 by Lorelei Toledo NP) Chronic GERD Chronic, continuous use of opioids DM2 (diabetes mellitus, type 2) Hypercholesterolemia Lumbar strain Migraine Nephrolithiasis Peripheral neuropathy Tear of meniscus of left knee Tobacco abuse Surgical History Surgical History (Updated 06/28/22 @ 21:58 by Lorelei Toledo NP) H/O cystoscopy H/O shoulder surgery left History of arthroplasty of left knee History of extraction of renal calculus History of lithotripsy History of removal of cyst S/P ureteral stent placement and 09/09/2020 Family History Family History (Updated 06/28/22 @ 21:59 by Lorelei Toledo NP) Mother Fibromyalgia Dementia IBS (irritable bowel syndrome) Diabetes mellitus Sibling Diabetes mellitus Social History Social History (Updated 06/28/22 @ 22:18 by Lorelei Toledo NP) Social History: the patient lives with his and his is the durable power commercial attorney for healthcare. The patient is a full code. The patient is currently not working and is applying for disability. The patient is a smoker. He does not drink alcohol or smoke marijuana or do any other illicit drug
[2022-06-28 20:13] LABS: Glucose Point of Care 326 mg/dl (65-105)
[2022-06-28] MEDS: FENOFIBRATE NANOCRYSTALLIZED 145 MG TABLET PO (20:18)
[2022-06-28] MEDS: PANTOPRAZOLE 40 MG TABLET PO (20:19)
[2022-06-28] MEDS: rOPINIRole HCL 1 MG TABLET PO (20:19)
[2022-06-28] MEDS: AMIODARONE 360 MG/D5W 200 ML 360 MG/200 ML BAG 16.67 MG IV CONT (20:20)
[2022-06-28] MEDS: SIMVASTATIN 20 MG TABLET 80 MG PO (20:20)
[2022-06-28 23:39] LABS: Troponin I 0.019 ng/mL (0.000-0.034)
[2022-06-29] VITALS (11 sets, daily range): BP systolic 137–144; BP diastolic 89–98; PULSE 63–75; RESP 18–28; TEMP 36.4–36.7; O2SAT 95–100
--- NOTE | 2022-06-29 | ECHO_ITS ---
Patient Info Name: Rommel Morales Age: 47 years : 1975 Gender: Male Ht: 77 in Wt: 276 lbs BSA: 2.64 m2 HR: 63 bpm BP: 137 / 94 mmHg Heart Rhythm: Sinus Rhythm Technical Quality: Fair Exam Date: 06/29/2022 8:13 AM Exam Location: [facility] Patient Status: Inpatient Admit Date: 06/28/2022 Staff Ordering Physician: Lorelei Toledo NP Hand Tapper: Verónica Bliss RDCS Attending Provider: Amee Melendez MD Referring Physician: Paris HODGE; Exam Type: CA echo doppler color flow Study Info Indications - new onset Afib Complete two-dimensional, color flow and Doppler transthoracic echocardiogram is performed. Summary 1. Complete two-dimensional, color flow and Doppler transthoracic echocardiogram is performed. 2. Trivial amounts of tricuspid and pulmonic valve regurgitation. 3. Otherwise unremarkable echocardiogram. Left Ventricle Left ventricular chamber dimension is normal. Left ventricular systolic function is normal, estimated at 55-60%. The left ventricular diastolic function is normal. Right Ventricle Right ventricular chamber dimension is normal. Left Atria Left atrial chamber dimension is normal. Right Atria Right atrial chamber dimension is normal. Aortic Valve The aortic valve is normal. Pulmonic Valve The pulmonic valve is normal. There is trace pulmonic regurgitation. Mitral Valve The mitral valve has normal leaflets. Tricuspid Valve The tricuspid valve leaflets are normal. There is trace tricuspid valve regurgitation. Pericardium/Pleural The pericardium appears normal. Aorta The aortic root size at the sinus of Valsalva is normal. Left Ventricular Outflow Tract Name Value Normal LVOT 2D LVOT Diameter 2.3 cm LVOT Doppler LVOT Peak Gradient 3 mmHg LVOT Mean Gradient 1 mmHg LVOT VTI 18 cm LVOT VTI/AV VTI Ratio 1.0 LVOT Stroke Volume 72 ml LVOT CO 4.7 l/min LVOT CI 1.8 l/min/m2 Pulmonic Valve Name Value Normal RVOT Doppler RVOT Peak Gradient 1 mmHg PV Doppler PV Peak Gradient 3 mmHg Mitral Valve Name Value Normal MV Doppler MV Decel Tucker 212 cm/s2 MV PHT 63 ms MV Area (PHT) 3.5 cm2 4.0-5.0 M
[2022-06-29 04:26] LABS: Basophils Absolute Auto 0.1 K/mm3 (0.0-0.1); Basophils Percent Auto 1.1 % (0.2-1.2); Eosinophils Absolute Auto 0.3 K/mm3 (0-0.3); Eosinophils Percent Auto 4.4 % (0-4.4); Hematocrit 46.7 % (42.0-52.0); Hemoglobin 16.2 g/dL (14.0-18.0); Immature Granulocyte Absolute 0.05 K/mm3 (0.00-0.031); Immature Granulocyte Percent A 0.7 % (0-0.5); Lymphocytes Absolute Auto 3.29 K/mm3 (0.9-3.2); Lymphocytes Percent Auto 43.9 % (18.3-44.2); Mean Corpuscular HGB Conc 34.7 g/dl (32-36); Mean Corpuscular Hemoglobin 30.1 pg (26-34); Mean Corpuscular Volume 86.8 fl (80-100); Mean Platelet Volume 10.2 fl (7.4-10.4); Monocytes Absolute Auto 0.4 K/mm3 (0.1-0.6); Monocytes Percent Auto 5.6 % (2.6-8.5); Neutrophils Absolute Auto 3.3 K/mm3 (1.3-6.7); Neutrophils Percent Auto 44.3 % (45.5-73.1); Platelet Count Result 175 k/mm3 (150-375); Red Blood Count 5.38 M/mm3 (4.6-6.20); Red Cell Distribution Width 13.2 % (11.5-14.5); White Blood Count 7.5 K/mm3 (4.5-10.0)
[2022-06-29 04:35] LABS: Hemoglobin A1C 9.4 % (<5.7)
[2022-06-29 04:38] LABS: Lactic Acid Reflex 1.4 mmol/L (0.7-2.0)
[2022-06-29 04:45] LABS: Alanine Aminotransferase 46 U/L (6-50); Albumin Level 3.9 g/dL (3.5-5.1); Alkaline Phosphatase 61 U/L (38-126); Anion Gap 9 mmol/L (8-16); Aspartate Amino Transferase 35 U/L (17-59); Bilirubin,Total 0.5 mg/dL (0.2-1.3); Blood Urea Nitrogen 14 mg/dL (9-20); CRP 0.5 mg/dL (<1.0); Calcium 8.5 mg/dL (8.4-10.2); Carbon Dioxide 27 mmol/L (22-30); Chloride 102 mmol/L (98-107); Estimated CRCL calculation 109 ml/min; Estimated Glomerular Filt Rate > 60; Glucose 185 mg/dL (65-110); Magnesium 1.8 mg/dL (1.6-2.3); Potassium 3.8 mmol/L (3.4-5.0); Sodium 138 mmol/L (137-145)
[2022-06-29] MEDS: ENOXAPARIN 60 MG/0.6 ML SYRINGE 45 MG SUB-Q (06:21)
[2022-06-29] MEDS: ENOXAPARIN 80 MG/0.8 ML SYRINGE SUB-Q (06:21)
[2022-06-29] MEDS: AMIODARONE 360 MG/D5W 200 ML 360 MG/200 ML BAG 16.67 MG IV CONT (06:26)
--- NOTE | 2022-06-29 07:35 | ECG_ITS ---
Measurements Intervals [place] Rate: 62 P: 30 CT: 260 QRS: 36 QRSD: 155 T: 31 QT: 478 QTc: 486 Interpretive Statements SINUS RHYTHM WITH FIRST DEGREE AV BLOCK RIGHT BUNDLE BRANCH BLOCK [120+ ms QRS DURATION, UPRIGHT V1, 40+ ms S IN I/aVL/V4/V5/V6] COMPARED TO ECG 06/28/2022 13:32:19 SINUS RHYTHM REPLACES ATRIAL FLUTTER Electronically Signed On 06-29-2022 13:44:06 CDT by Keshav Phoenix M.D.
--- NOTE | 2022-06-29 08:32 | PM.CNCAR ---
Assessment and Plan Assessment and plan (1) Atrial flutter: Code(s): I48.92 - Unspecified atrial flutter Status: Acute Plan This is a 47-year-old gentleman with diabetes and dyslipidemia presenting with symptomatic atrial flutter. He converted to sinus rhythm medically with intravenous amiodarone and is asymptomatic since then. Some reason STEMI was declared in the field there was no clinical evidence of this and his ECG did not show any evidence of a current of injury. I am going to stop his amiodarone at this time and recommend advancing his metoprolol dosage to 100 mg. Discussed antiarrhythmic medical options for this patient as well as considering ablate of treatment of his atrial flutter since he is quite young. He he expresses interest in having a consultation with an lay out carpenter which I told him I will be happy to arrange as an outpatient. I will review his echocardiogram later when it has been completed but I would expect this patient should be able to go home later today and I will arrange for consultation with electrophysiology. Keshav Phoenix MD [facility] History of Present Illness History of Present Illness Consult date/time: 06/29/22 08:32 Reason For Visit: STEMI Narrative: This is a 47-year-old man I am seeing this morning at the request of the hospitalist for assistance with the evaluation and management of atrial flutter. He has never had any cardiac problems in the past that he is aware of. He came to the emergency room yesterday after with symptoms of the abrupt onset of tachycardia left shoulder pain and diaphoresis. The symptoms began while he was at his home at rest. He knew immediately that there was a significant problem because he has never had symptoms like this in the past. He came to the emergency room by ambulance. In the field STEMI was declared even though there was no evidence of this on ECG. When he got to the emergency room he was clearly and atrial flutter with 2-1 conduction with right bundle branch block. Previous electrocardiograms in his chart do demonstrate chronic right bundle branch block. The patient states that he has had diabetes for about 2 years and dyslipidemia no history of hypertension he does have history of migraine headaches. Following evaluation emergency room he was placed on intravenous amiodarone last evening he did abruptly convert to sinus rhythm he still has a maintenance dose IV amiodarone running this morning. He has been anticoagulated with Lovenox. An echocardiogram has been ordered for this morning that has not yet been done. Review of Systems Constitutional: Constitutional: Reports no additional constitutional complaints Eyes: Eyes: Reports no additional eye complaints ENT: Reports system reviewed and no additional complaints, except as documented Cardiovascular: Cardiovascular: Reports as per HPI Respiratory: Respiratory: Reports no additional respiratory complaints Gastrointestinal: Gastrointestinal: Reports no additional gastrointestinal complaints Musculoskeletal: Musculoskeletal: Reports no additional musculoskeletal complaints Integumentary/Breasts: Skin/Breast: Reports system reviewed and no additional complaints, except as docu Neurologic: Reports system reviewed and no additional complaints, except as documented Endocrine: Endocrine: Reports no additional endocrine complaints and Reports as per HPI Hematologic/Lymphatic: Hematologic/Lymphatic: Reports no additional hematologic/lymphatic complaints Allergic/Immunologic: Allergic/Immunologic: Reports no additional allergic/immunologic complaints PMFSH Past Medical History Medical History (Updated 06/29/22 @ 08:38 by Keshav Phoenix MD) Chronic GERD Chronic, continuous use of opioids DM2 (diabetes mellitus, type 2) Hypercholesterolemia Lumbar strain Migraine Nephrolithiasis Peripheral neuropathy Tear of meniscus of left knee Tobacco abuse Surgical History Solorzano
[2022-06-29 09:30] LABS: Glucose Point of Care 171 mg/dl (65-105)
[2022-06-29] MEDS: METOPROLOL SUCCINATE EXT REL 100 MG TABCR PO (09:48)
[2022-06-29] MEDS: NICOTINE (*PBKC) 21 MG PATCH 1 PATCH TRANSDERM (09:49)
[2022-06-29] MEDS: GABAPENTIN 100 MG CAPSULE PO (09:51)
[2022-06-29 12:52] LABS: Glucose Point of Care 275 mg/dl (65-105)
[2022-06-29] MEDS: INSULIN ASPART (*BKC) 100 UNITS/ML SUB-Q (13:20)
--- NOTE | 2022-06-29 13:56 | PM.DS ---
DS: Admitting Diagnosis Discharge Date 06/29/2020 Admitting Diagnosis Chest pain DS: Summary Hospital Course Reason for hospitalization: this is a 47-year-old male patient who has a history of hypertension and diabetes.? He also has a history migraines.? The patient came to the emergency room from the [facility] when he developed chest pain.? The patient stated that he his were despite ready to go and he complained of this palpitations and chest pain.? ? The patient has had a previous experience like this back in 09/06/2016 where he felt his heart racing and had midsternal chest pain at that time.? Today the patient had tachycardia and some ST depression a code STEMI was called in the field and the patient was given aspirin and nitroglycerin.? The nitroglycerin gave the patient a migraine.? He was given Imitrex for the migraine.? The patient had no nausea vomiting or chills.? EKG was noted to be possible atrial flutter with a right bundle-branch block.? Heart rate 153.? His blood pressure was low so we started on amiodarone.? Patient is currently in sinus rhythm.? The patient was started on subcu Lovenox and given Lopressor x1.? Cardiology has been consulted.? The patient is being admitted to observation status on the date of service of 06/28/2022. Hospital Course: # atrial fibrillation with rapid ventricular rate: Patient started on amiodarone drip.//cords to was started on subcu Lovenox. This can be switched to Xarelto or Eliquis. Cardiology was consulted. He recommended to discontinue amiodarone and was up titrated on his metoprolol. He will follow-up with him subsequently with marine firer as an outpatient basis. TSH and magnesium was normal. No anticoagulant needed per Cardiology. His chads Vasc score is 1 due to his history of diabetes # type 2 diabetes mellitus: ? The patient stated that his last A1c was 5.3 and he was taken off of his medications.? A1c recheck at 9.4. - Accu-Cheks AC and HS with sliding scale insulin. Patient was sugar has been in 200s. Advised to discuss this finding with his primary care. He also had recently blood work done by his primary care. He is on metformin 500 mg b.i.d. which will be titrated to 1000 mg b.i.d. at discharge # chest pain: ? -? Patient no longer has any chest pain.? May be related to the AFib with RVR. -echo has been ordered. Troponin were negative x3. # tobacco abuse: ? -The patient has been smoking 1 and half packs of cigarettes a day. # chronic GERD: ? -Continue with home dose of pantoprazole # migraine: ?-continue with Imitrex.? The patient has already been given a dose x1 today.? The patient also tells me that he was on metoprolol for his migraines. # peripheral neuropathy: ? -Continue with gabapentin # hypercholesterolemia: ?-continue with fenofibrate and simvastatin. Cholesterol 133/26/81/288 Time Spent with Patient Time attestation: Total time spent providing and/or coordinating discharge services: 45 minutes Exam Narrative: GENERAL: The patient is well developed, not in acute distress HEENT: Nonicteric sclerae, PERRLA, EOMI. Oropharynx clear. Moist mucous membranes. Conjunctivae appear well perfused. CHEST: Chest wall is nontender. HEART: Regular rate and rhythm without murmur, rubs, or gallops LUNGS: Clear to auscultation bilaterally. no respiratory distress ABDOMEN: Soft, positive bowel sounds, non-tender, no organomegaly. SKIN: No rash, no excessive bruising, petechiae, or purpura. NEUROLOGIC: Cranial nerves II-XII intact, alert and oriented x 3, no gross motor deficits EXTREMITIES: no edema, cyanosis or clubbing DS: Data Data Completed and Pending Completed studies during hospitalization: Exam Type: ? ? CA echo doppler color flow Study Info Indications ?? ? - new onset Afib Complete two-dimensional, color flow and Doppler transthoracic echocardiogram is performed. Account #: ? ? [id number] Summary ? 1. Complete two-dim
== END 2022-06-29 16:02 | disposition home or self-care (01) ==
LOC: ANHED 13:31 → ANHIMU 15:04
PROVIDERS: Nurse Practitioner; Admitting Provider Hospitalist; Emergency Provider Emergency Medicine; PCP Family Medicine; Visit Provider Hospitalist
DX: I48.92 Unspecified atrial flutter (principal); I48.91 Unspecified atrial fibrillation; R06.02 Shortness of breath; R11.0 Nausea; I45.10 Unspecified right bundle-branch block; I44.0 Atrioventricular block, first degree; R00.0 Tachycardia, unspecified; R61 Generalized hyperhidrosis; E11.42 Type 2 diabetes mellitus with diabetic polyneuropathy; E78.00 Pure hypercholesterolemia, unspecified; J98.11 Atelectasis; J01.90 Acute sinusitis, unspecified; K21.9 Gastro-esophageal reflux disease without esophagitis; G43.909 Migraine, unspecified, not intractable, without status migrainosus; F10.90 Alcohol use, unspecified, uncomplicated; F17.210 Nicotine dependence, cigarettes, uncomplicated; Z79.1 Long term (current) use of non-steroidal anti-inflammatories (NSAID); Z79.84 Long term (current) use of oral hypoglycemic drugs; Z79.899 Other long term (current) drug therapy; Z83.3 Family history of diabetes mellitus
CPT/HCPCS: 36415; 70450; 71045; 80053; 80061; 82948; 83036; 83605; 83735; 84443; 84484; 85025; 85610; 85730; 86140; 86850; 86900; 86901; 93005; 93306; 96365; 96366; 96367; 96372; 99285; A9270; G0378; G0379; J0131; J0282; J1650; J1815; J7030